=== PATIENT | male | born 1975 | race American Indian/Alaskan Native ===

== ENCOUNTER 2017-05-06 13:25 | Outpatient (CLI) | payer MEDICARE ==
[2017-05-06] MEDS ORDERED: XYLOCAINE TOPICAL 4% TP ONE (15:00)
== END 2017-05-06 13:26 | disposition home or self-care (01) ==
LOC: WOUND 13:25
PROVIDERS: ATTEND Surgery
DX: T81.89XA Other complications of procedures, not elsewhere classified, initial encounter (principal); J44.9 Chronic obstructive pulmonary disease, unspecified; I11.0 Hypertensive heart disease with heart failure; I50.9 Heart failure, unspecified; E66.01 Morbid (severe) obesity due to excess calories; Z87.891 Personal history of nicotine dependence; F41.9 Anxiety disorder, unspecified; Z68.44 Body mass index [BMI] 60.0-69.9, adult; Z86.718 Personal history of other venous thrombosis and embolism; Y83.8 Other surgical procedures as the cause of abnormal reaction of the patient, or of later complication, without mention of misadventure at the time of the procedure; Y92.89 Other specified places as the place of occurrence of the external cause
CPT/HCPCS: G0463-25

== ENCOUNTER 2017-05-20 13:29 | Outpatient (CLI) | payer MEDICARE ==
[2017-05-20] MEDS ORDERED: XYLOCAINE TOPICAL 4% TP ONE ×2 (14:18→15:33)
[2017-05-20] MEDS ORDERED: NACL 0.9% 500 ML IR ONE (14:18)
[2017-05-20] MEDS ORDERED: NACL 0.9% IR PRN (15:33)
== END 2017-05-20 13:30 | disposition home or self-care (01) ==
LOC: WOUND 13:29
PROVIDERS: ATTEND Surgery
DX: T81.89XD Other complications of procedures, not elsewhere classified, subsequent encounter (principal); J44.9 Chronic obstructive pulmonary disease, unspecified; I11.0 Hypertensive heart disease with heart failure; I50.9 Heart failure, unspecified; E66.01 Morbid (severe) obesity due to excess calories; F41.9 Anxiety disorder, unspecified; Z86.718 Personal history of other venous thrombosis and embolism; Z68.44 Body mass index [BMI] 60.0-69.9, adult; Y83.8 Other surgical procedures as the cause of abnormal reaction of the patient, or of later complication, without mention of misadventure at the time of the procedure
CPT/HCPCS: 97605

== ENCOUNTER 2017-05-27 10:04 | Outpatient (CLI) | payer MEDICARE ==
[2017-05-27] MEDS ORDERED: XYLOCAINE TOPICAL 4% TP ONE ×2 (10:33→11:00)
== END 2017-05-27 10:05 | disposition home or self-care (01) ==
LOC: WOUND 10:04
PROVIDERS: ATTEND Surgery
DX: T81.89XD Other complications of procedures, not elsewhere classified, subsequent encounter (principal); L97.122 Non-pressure chronic ulcer of left thigh with fat layer exposed; J44.9 Chronic obstructive pulmonary disease, unspecified; I11.0 Hypertensive heart disease with heart failure; I50.9 Heart failure, unspecified; E66.01 Morbid (severe) obesity due to excess calories; F41.9 Anxiety disorder, unspecified; Z86.718 Personal history of other venous thrombosis and embolism; Z87.891 Personal history of nicotine dependence; Z68.44 Body mass index [BMI] 60.0-69.9, adult; Y83.8 Other surgical procedures as the cause of abnormal reaction of the patient, or of later complication, without mention of misadventure at the time of the procedure
CPT/HCPCS: 97605

== ENCOUNTER 2017-06-04 13:42 | Outpatient (CLI) | payer MEDICARE ==
[2017-06-04] MEDS ORDERED: XYLOCAINE TOPICAL 4% TP ONE ×2 (14:23→14:32)
== END 2017-06-04 13:43 | disposition home or self-care (01) ==
LOC: WOUND 13:42
PROVIDERS: ATTEND Nurse Practitioner
DX: T81.89XD Other complications of procedures, not elsewhere classified, subsequent encounter (principal); E11.622 Type 2 diabetes mellitus with other skin ulcer; L97.122 Non-pressure chronic ulcer of left thigh with fat layer exposed; J44.9 Chronic obstructive pulmonary disease, unspecified; I11.0 Hypertensive heart disease with heart failure; I50.9 Heart failure, unspecified; F41.9 Anxiety disorder, unspecified; Z86.718 Personal history of other venous thrombosis and embolism; Z87.891 Personal history of nicotine dependence; Y83.8 Other surgical procedures as the cause of abnormal reaction of the patient, or of later complication, without mention of misadventure at the time of the procedure

== ENCOUNTER 2017-06-10 14:10 | Outpatient (CLI) | payer MEDICARE ==
[2017-06-10] MEDS ORDERED: SILVER NITRATE TP ONE ×2 (14:30→14:34)
== END 2017-06-10 14:11 | disposition home or self-care (01) ==
LOC: WOUND 14:10
PROVIDERS: ATTEND Surgery
DX: T81.89XD Other complications of procedures, not elsewhere classified, subsequent encounter (principal); I11.0 Hypertensive heart disease with heart failure; I50.9 Heart failure, unspecified; E66.01 Morbid (severe) obesity due to excess calories; F41.9 Anxiety disorder, unspecified; Z86.718 Personal history of other venous thrombosis and embolism; Z87.891 Personal history of nicotine dependence; Y83.8 Other surgical procedures as the cause of abnormal reaction of the patient, or of later complication, without mention of misadventure at the time of the procedure
CPT/HCPCS: 17250; G0463

== ENCOUNTER 2017-06-17 11:07 | Outpatient (CLI) | payer MEDICARE | END 2017-06-17 11:08 | disposition home or self-care (01) | LOC: WOUND 11:07 | PROVIDERS: ATTEND Surgery | DX: T81.89XD Other complications of procedures, not elsewhere classified, subsequent encounter (principal); I11.0 Hypertensive heart disease with heart failure; I50.9 Heart failure, unspecified; J44.9 Chronic obstructive pulmonary disease, unspecified; E66.9 Obesity, unspecified; F41.9 Anxiety disorder, unspecified; G47.33 Obstructive sleep apnea (adult) (pediatric); Z86.718 Personal history of other venous thrombosis and embolism; Z87.891 Personal history of nicotine dependence; Y83.8 Other surgical procedures as the cause of abnormal reaction of the patient, or of later complication, without mention of misadventure at the time of the procedure | CPT/HCPCS: 99213; G0463 ==

== ENCOUNTER 2018-01-19 12:59 | Emergency (ER) | payer MEDICARE ==
[2018-01-19] MEDS ORDERED: NACL 0.9% 1000 ML 1,000 ML IV ONE (13:27)
[2018-01-19 14:04] LABS: Basophils # (Auto) 0.1 K/mm3 (0.0-0.1); Basophils % (Auto) 0.8 % (0.0-1.8); Eosinophils # (Auto) 0.1 K/mm3 (0.0-0.4); Eosinophils % (Auto) 0.6 % (0.0-4.3); Hematocrit 48.5 % (35.5-45.6); Hemoglobin 16.3 gm/dl (11.8-15.2); Lymphocytes # (Auto) 2.7 K/mm3 (1.2-5.4); Lymphocytes % (Auto) 17.9 % (13.4-35.0); Mean Corpuscular HGB Conc 34 % (32-34); Mean Corpuscular Hemoglobin 29 pg (28-32); Mean Corpuscular Volume 87 fl (84-94); Monocytes # (Auto) 0.8 K/mm3 (0.0-0.8); Monocytes % (Auto) 5.4 % (0.0-7.3); Platelet Count 274 K/mm3 (140-440); Red Blood Count 5.56 M/mm3 (3.65-5.03); Red Cell Distribution Width 13.2 % (13.2-15.2)
[2018-01-19] MEDS ORDERED: SUBLIMAZE IV ONE (14:14)
[2018-01-19] MEDS ORDERED: ZOFRAN IV ONE (14:14)
--- NOTE | 2018-01-19 14:15 | Emergency Department Report ---
ED General Adult HPI - General Chief complaint: Abdominal Pain Stated complaint: CHEST PAIN/THROWING UP 4 DAYS Time Seen by Provider: 01/19/18 13:58 Source: patient, RN notes reviewed, old records reviewed Mode of arrival: Ambulatory Limitations: No Limitations - History of Present Illness Initial comments: Cardiology: [facility] Passenger Agent: Dr. Yepez Past medical history: Congestive heart failure, COPD, obesity, chronic hypoxic respiratory failure, home oxygen, CPAP with oxygen, obesity, hypertension, diabetes This is a 42-year-old gentleman who presents to the ER complaining of epigastric and bilateral upper quadrant pain that radiates down to the right mid flank. It is associated with nausea, and coughing/vomiting coffee-ground emesis. There is no testicular pain, there are no urinary symptoms. He reports intermittent spells of coughing up dark mucus, and posttussive emesis with coffee grounds. However, he denies bright red blood per rectum. His pain is crampy achy and sharp, increases with palpation and it decreases with rest. It does not change with a hot shower. He admits to cannabis consumption. He denies lower abdominal pain, testicular pain, leg pain, leg swelling. -: Gradual, days(s) Location: abdomen Quality: aching Consistency: intermittent Improves with: rest Worsens with: movement Associated Symptoms: cough, nausea/vomiting, shortness of breath (chronic). denies: confusion, chest pain, diaphoresis, fever/chills, headaches, loss of appetite, malaise, rash, seizure, syncope, weakness - Related Data Home Medications Medication Instructions Recorded Confirmed Last Taken ALPRAZolam [Xanax TAB] 2 mg PO TID PRN 04/23/17 04/23/17 04/23/17 Aspirin [Aspirin EC] 81 mg PO DAILY 04/23/17 04/23/17 04/23/17 Furosemide [Lasix TAB] 40 mg PO QDAY 04/23/17 04/23/17 04/23/17 Previous Rx's Medication Instructions Recorded Last Taken Type Carvedilol [Coreg] 25 mg PO BID #60 tablet 05/05/17 Unknown Rx Insulin Aspart [NovoLOG Flexpen] 40 units SQ AC 30 Days #1 05/05/17 04/23/17 Rx Ketoconazole 2% [Nizoral] 1 applic TP BID #1 tube 05/05/17 Unknown Rx Lisinopril [Zestril TAB] 40 mg PO QDAY #30 tablet 05/05/17 Unknown Rx Oxycodone HCl/Acetaminophen 1 each PO Q6HR PRN #14 tablet 05/05/17 Unknown Rx [Percocet 10/325 mg] Hydeqvzqokly-Qusf-Xucjtcls,Iso 4.5 gm IV Q8H 21 Days froz.piggy 05/05/17 Unknown Rx [Zosyn 4.5 gm/100 ml Galaxy Bag] Vancomycin/0.9 % Sod Chloride 2 gm IV Q12H 21 Days plast..bag 05/05/17 Unknown Rx [Vanco 2 Gram/250 ml-0.9% NaCl] Albuterol Sulfate [Proair 90 mcg IH Q4HR PRN #2 aer.pow.ba 01/19/18 Unknown Rx Respiclick] Famotidine [Pepcid] 20 mg PO BID #60 tablet 01/19/18 Unknown Rx Ondansetron [Zofran Odt] 4 mg PO Q8HR PRN #20 tab.rapdis 01/19/18 Unknown Rx Allergies Allergy/AdvReac Type Severity Reaction Status Date / Time cephalexin [From Keflex] Allergy Unknown Verified 01/19/18 14:44 Penicillins Allergy Unknown Verified 01/19/18 14:44 ED Review of Systems ROS: Stated complaint: CHEST PAIN/THROWING UP 4 DAYS Other details as noted in HPI Constitutional: denies: fever, malaise Eyes: denies: eye discharge Respiratory: cough, shortness of breath. denies: wheezing Cardiovascular: denies: chest pain Gastrointestinal: abdominal pain, nausea, vomiting. denies: hematemesis, melena , hematochezia Musculoskeletal: denies: as per HPI Skin: denies: lesions Neurological: denies: weakness Psychiatric: anxiety ED Past Medical Hx - Past Medical History Hx Hypertension: Yes Hx Congestive Heart Failure: Yes Hx Diabetes: Yes Hx Deep Vein Thrombosis: No Hx Psychiatric Treatment: Yes Hx COPD: Yes (Home O2) Additional medical history: ADD. anxiety. lung obstruction (right). obeisity - Surgical History Hx Pacemaker: No Hx Internal Defibrillator: No - Social History Smoking Status: Former Smoker Substance Use Type: Marijuana - Medications Home Medications: Home Medications Medication Instructions Recorded Confirmed Last Taken Type ALPRAZolam [Xanax TAB] 2 mg PO TID PRN 04/23/17 04/23/17 04/23/17 History Aspirin [Aspirin EC] 81 mg PO DAILY 04/23/17 04/23/17 04/23/17 History Furosemide [Lasix TAB] 40 mg PO QDAY 04/23/17 04/23/17 04/23/17 History Carvedilol [Coreg] 25 mg PO BID #60 tablet 05/05/17 Unknown Rx Insulin Aspart [NovoLOG Flexpen] 40 units SQ AC 30 Days #1 05/05/17 04/23/17 Rx Ketoconazole 2% [Nizoral] 1 applic TP BID #1 tube 05/05/17 Unknown Rx Lisinopril [Zestril TAB] 40 mg PO QDAY #30 tablet 05/05/17 Unknown Rx Oxycodone HCl/Acetaminophen 1 each PO Q6HR PRN #14 tablet 05/05/17 Unknown Rx [Percocet 10/325 mg] Jubnyhoioykq-Jtdc-Fgsdgrqn,Iso 4.5 gm IV Q8H 21 Days froz.piggy 05/05/17 Unknown Rx [Zosyn 4.5 gm/100 ml Galaxy Bag] Vancomycin/0.9 % Sod Chloride 2 gm IV Q12H 21 Days plast..bag 05/05/17 Unknown Rx [Vanco 2 Gram/250 ml-0.9% NaCl] Albuterol Sulfate [Proair 90 mcg IH Q4HR PRN #2 aer.pow.ba 01/19/18 Unknown Rx Respiclick] Famotidine [Pepcid] 20 mg PO BID #60 tablet 01/19/18 Unknown Rx Ondansetron [Zofran Odt] 4 mg PO Q8HR PRN #20 tab.rapdis 01/19/18 Unknown Rx ED Physical Exam - General Limitations: No Limitations General appearance: alert, in no apparent distress, obese - Head Head exam: Present: atraumatic, normocephalic - Eye Eye exam: Present: normal appearance. Absent: nystagmus - ENT ENT exam: Present: normal orophraynx, mucous membranes moist - Neck Neck exam: Present: normal inspection, full ROM - Respiratory Respiratory exam: Present: rhonchi, decreased breath sounds. Absent: respiratory distress - Cardiovascular Cardiovascular Exam: Present: regular rate, normal rhythm, normal heart sounds. Absent: bradycardia, tachycardia, irregular rhythm, systolic murmur, diastolic murmur, rubs, gallop - GI/Abdominal GI/Abdominal exam: Present: soft, tenderness (epigastric tenderness, right upper quadrant tenderness, right flank tenderness). Absent: distended, guarding , rebound, rigid, pulsatile mass - Rectal Rectal exam: Present: normal inspection, heme (-) stool, other (escorted by nurse Douglas Keyes). Absent: heme (+) stool, black stool, bloody stool, fecal impaction, hemorrhoids, mass, tenderness - Extremities Exam Extremities exam: Present: normal inspection, full ROM, other (2+ pulses noted in the bilateral upper, lower extremities. Compartments soft. No long bony tenderness. The pelvis is stable.). Absent: tenderness, joint swelling, calf tenderness - Back Exam Back exam: Present: normal inspection, full ROM. Absent: tenderness, CVA tenderness (R), paraspinal tenderness, vertebral tenderness - Neurological Exam Neurological exam: Present: alert, oriented X3, CN II-XII intact, other ( Extraocular movements intact. Tongue midline. No facial droop. Facial sensation intact to light touch in the V1, V2, V3 distribution bilaterally. 5 and 5 strength in 4 extremities.. Sensation is intact to light touch in 4 extremities.). Absent: motor sensory deficit - Psychiatric Psychiatric exam: Present: normal affect, normal mood - Skin Skin exam: Present: warm, dry, intact, normal color. Absent: rash ED Course Vital Signs 01/19/18 01/19/18 01/19/18 13:19 14:50 15:14 Temperature 98.2 F 98.8 F Pulse Rate 95 H 83 Respiratory 18 20 20 Rate Blood Pressure 167/105 Blood Pressure 136/76 [Right] O2 Sat by Pulse 97 95 95 Oximetry - Reevaluation(s) Reevaluation #1: 01/19/18 15:11 Differential diagnosis, including not limited to: GERD, gastritis, hiatal hernia , biliary colic, pancreatitis, upper GI bleed, gastritis, bronchitis, bronchiectasis, pneumonia Assessment and plan: 42-year-old male with complaint of abdominal pain, coughing up dark mucus, posttussive emesis, reported coffee grounds, with mild abdominal tenderness. He is guaiac negative. Hemoglobin and hematocrit are appropriate. He is playing on a cellular phone and in no distress and speaking in full sentence has chronic medical issues which do not appear to be acutely decompensated at this time. CT scan of the abdomen and pelvis and ultrasound pending at this time. Reevaluation #2: 01/19/18 18:16 Patient's ultrasound is negative for gallbladder disease. Fatty liver is noted on both ultrasound and CT scan. The patient is observed in the ER for hours without clinical decompensation. A CT scan of his abdomen and pelvis does not suggest pneumonia in the visualized portions of the lung bases. The x-ray interpretation suggests a possible right-sided suprahilar/hilar infiltrate, however the rate is ambiguous. Clinically do not suspect pneumonia at this point in time. Clinically do not suspect pulmonary embolus at this time. Patient is tolerating liquid feeds. He will be discharged with appropriate GI pain medicine, nausea medicine, breathing treatments, and he can follow-up with outpatient gastroenterology as well as his private acid condenser. ED Medical Decision Making - Lab Data Result diagrams: 01/19/18 13:40 01/19/18 13:40 Vital Signs 01/19/18 13:19 Temperature 98.2 F Pulse Rate 95 H Respiratory 18 Rate Blood Pressure 167/105 O2 Sat by Pulse 97 Oximetry Lab Results 01/19/18 01/19/18 01/19/18 Range/Units 13:40 13:40 13:55 WBC 15.3 H (4.5-11.0) K/mm3 RBC 5.56 H (3.65-5.03) M/mm3 Hgb 16.3 H (11.8-15.2) gm/dl Hct 48.5 H (35.5-45.6) % MCV 87 (84-94) fl MCH 29 (28-32) pg MCHC 34 (32-34) % RDW 13.2 (13.2-15.2) % Plt Count 274 (140-440) K/mm3 Lymph % (Auto) 17.9 (13.4-35.0) % Wells % (Auto) 5.4 (0.0-7.3) % Eos % (Auto) 0.6 (0.0-4.3) % Baso % (Auto) 0.8 (0.0-1.8) % Lymph # 2.7 (1.2-5.4) K/mm3 Wells # 0.8 (0.0-0.8) K/mm3 Eos # 0.1 (0.0-0.4) K/mm3 Baso # 0.1 (0.0-0.1) K/mm3 Seg Neutrophils % 75.3 H (40.0-70.0) % Seg Neutrophils # 11.5 H (1.8-7.7) K/mm3 Sodium 137 (137-145) mmol/L Potassium 3.6 (3.6-5.0) mmol/L Chloride 95.8 L (98-107) mmol/L Carbon Dioxide 25 (22-30) mmol/L Anion Gap 20 mmol/L BUN 12 (9-20) mg/dL Creatinine 0.7 L (0.8-1.5) mg/dL Estimated GFR > 60 ml/min BUN/Creatinine Ratio 17 % Glucose 274 H (75-100) mg/dL Calcium 9.2 (8.4-10.2) mg/dL Total Bilirubin 0.80 (0.1-1.2) mg/dL AST 19 (5-40) units/L ALT 26 (7-56) units/L Alkaline Phosphatase 106 (35-129) units/L Total Protein 7.5 (6.3-8.2) g/dL Albumin 3.7 L (3.9-5) g/dL Albumin/Globulin Ratio 1.0 % Lipase 76 H (13-60) units/L Urine Color [place] (Yellow) Urine Turbidity Clear (Clear) Urine pH 5.0 (5.0-7.0) Ur Specific [place] 1.040 H (1.003-1.030) Urine Protein 100 mg/dl (Negative) mg/dL Urine Glucose (UA) >=500 (Negative) mg/dL Urine Ketones 20 (Negative) mg/dL Urine Blood Neg (Negative) Urine Nitrite Neg (Negative) Urine Bilirubin Mod (Negative) Urine Ictotest Negative (Negative) Urine Urobilinogen 4.0 (<2.0) mg/dL Ur Leukocyte Esterase Neg (Negative) Urine WBC (Auto) 9.0 H (0.0-6.0) /HPF Urine RBC (Auto) 1.0 (0.0-6.0) /HPF U Epithel Cells (Auto) 7.0 (0-13.0) /HPF Urine Mucus 3+ /HPF - EKG Data -: EKG Interpreted by Me EKG shows normal: sinus rhythm - EKG Data 01/19/18 15:10 Normal sinus, 86 bpm, borderline left axis deviation, QTC prolonged, abnormal EKG, not a STEMI, appears grossly unchanged when compared to prior from April 2017, the exception of the borderline left axis deviation, which may be related to lead placement, motion artifact - Radiology Data Radiology results: image reviewed interpreted by me: X-ray of the chest, interpreted by me, no acute disease Critical care attestation.: If time is entered above; I have spent that time in minutes in the direct care of this critically ill patient, excluding procedure time. ED Disposition Clinical Impression: Bronchitis, Epigastric abdominal pain, History of nausea and vomiting Disposition: - TO HOME OR SELFCARE Is pt being admited?: No Does the pt Need Aspirin: No Condition: Stable Instructions: Chronic Bronchitis (ED) Additional Instructions: Avoid consumption of Motrin, ibuprofen, Naprosyn, Aleve, heavy, spicy foods, alcohol. Both ultrasound and CT scan of the abdomen and pelvis suggested fatty infiltration of the liver, which can come from diet and alcohol consumption. Take the medications as needed/directed, and follow up with a forestry consultant specialist within the next week. [facility] has a patient Hotline that can be used to obtain a rapid appointment. Continue your outpatient pulmonary medicines and follow-up with your acid condenser within the next week as well. Return to the ER right away with new pain, worsening pain, migration of pain, projectile vomiting, change in mental status , confusion, inability to tolerate liquid feeds. Then start gently as tolerated , and start with gentle fluids, and then go from there. Referrals: CATIE GRAHAM MD [Primary Care Provider] - 3-5 Days CASTRO YEPEZ MD [Staff Physician] - 3-5 Days [facility] [Provider Group] - 3-5 Days
[2018-01-19 14:17] LABS: Alanine Aminotransferase 26 units/L (7-56); Albumin 3.7 g/dL (3.9-5); BUN/Creatinine Ratio 17; Blood Urea Nitrogen 12 mg/dL (9-20); Calcium 9.2 mg/dL (8.4-10.2); Hemolysis Index 16; Lipase 76 units/L (13-60)
[2018-01-19 14:26] LABS: Bilirubin,Urine MOD (Negative); Blood,Urine NEG (Negative); Color,Urine Amber (Yellow); Mucus,Urine 3+ /HPF
[2018-01-19 14:30] LABS: Ictotest,Urine Negative (Negative)
[2018-01-19 15:13] VITALS: BP 136/76
[2018-01-19 15:21] LABS: INR 0.86 (0.87-1.13)
[2018-01-19 15:22] LABS: Partial Thromboplastin Time 24.4 Sec. (24.2-36.6)
--- NOTE | 2018-01-19 15:36 | Cat Scan Report ---
CT ABDOMEN PELVIS WITH CONTRAST: HISTORY: abdominal pain. COMPARISON: 04/23/17. TECHNIQUE: Helical CT in 1.25mm intervals following IV contrast. Sagittal and coronal reconstructions. FINDINGS: Lung bases: Normal. Liver: Mild diffuse fatty change is present throughout the liver. A small segment of the lateral right hepatic lobe is not included secondary to body habitus. There is no obvious liver mass. Biliary system: Normal. Pancreas: Normal. Spleen: Normal. Kidneys/ureters/bladder: Normal. Adrenal glands: Normal. Aorta: Normal. Intestines: Normal. Appendix: Normal. Pelvic viscera: Normal. Ascites: None. Adenopathy: None. Musculoskeletal: Intact. IMPRESSION: No acute process is identified. Mild fatty change throughout the liver.
--- NOTE | 2018-01-19 17:17 | XRay Report ---
FINAL REPORT EXAM: XR CHEST ROUTINE 2V HISTORY: cough dyspnea TECHNIQUE: Two views of the chest Comparison: Lung bases CT abdomen and pelvis 04/23/2017 FINDINGS: Heart size is normal. Slight distortion of the hilar contours. Ill-defined fullness of the right hilum and suprahilar region. A patchy right suprahilar infiltrate may be present. No definite abnormality on the lateral projection. No effusion. No infiltrates otherwise. IMPRESSION: Larger patient body habitus. Possible patchy right suprahilar infiltrate. Consider CT chest with IV contrast. If any concern for pulmonary embolus, recommend CTA PE protocol.
--- NOTE | 2018-01-19 18:03 | Ultrasound Report ---
FINAL REPORT EXAM: US ABDOMEN LIMITED HISTORY: abd pain TECHNIQUE: Directed sonography of the right upper quadrant. PRIORS: None. FINDINGS: Patient body habitus limits examination. Gallbladder is of normal size and echogenicity without evidence of calculi. Wall thickness within normal limits. Intra-and extrahepatic bile ducts are of normal caliber. Liver is enlarged and has diffusely increased echogenicity without focal abnormalities. Right kidney measures 11.1 cm in longest dimension and is grossly unremarkable. Pancreas poorly visualized. IMPRESSION: 1. Findings compatible with hepatomegaly and fatty infiltration in the liver. 2. Otherwise, unremarkable.
== END 2018-01-19 18:35 | disposition home or self-care (01) ==
LOC: ED 12:59
DX: J40 Bronchitis, not specified as acute or chronic (principal); I11.0 Hypertensive heart disease with heart failure; F41.9 Anxiety disorder, unspecified; E11.9 Type 2 diabetes mellitus without complications; Z79.82 Long term (current) use of aspirin; Z79.4 Long term (current) use of insulin; Z88.0 Allergy status to penicillin; Z88.5 Allergy status to narcotic agent; Z87.891 Personal history of nicotine dependence
CPT/HCPCS: 36415; 71046; 74177; 76705; 80053; 81001; 82140; 82271; 83690; 83880; 85025; 85610; 85730; 93005; 93010; 96374; 96375; 99284; J2405; J3010; Q9967

== ENCOUNTER 2018-01-26 00:43 | Emergency (ER) | payer MEDICARE ==
[2018-01-26] MEDS ORDERED: NACL 0.9% 1000 ML 1,000 ML IV ONE (01:52)
[2018-01-26 02:16] LABS: Basophils # (Auto) 0.1 K/mm3 (0.0-0.1); Basophils % (Auto) 0.8 % (0.0-1.8); Eosinophils # (Auto) 0.2 K/mm3 (0.0-0.4); Eosinophils % (Auto) 1.9 % (0.0-4.3); Hematocrit 48.8 % (35.5-45.6); Hemoglobin 16.2 gm/dl (11.8-15.2); Lymphocytes # (Auto) 3.4 K/mm3 (1.2-5.4); Lymphocytes % (Auto) 25.7 % (13.4-35.0); Mean Corpuscular HGB Conc 33 % (32-34); Mean Corpuscular Hemoglobin 29 pg (28-32); Mean Corpuscular Volume 88 fl (84-94); Monocytes # (Auto) 0.8 K/mm3 (0.0-0.8); Monocytes % (Auto) 5.8 % (0.0-7.3); Platelet Count 297 K/mm3 (140-440); Red Blood Count 5.53 M/mm3 (3.65-5.03); Red Cell Distribution Width 13.2 % (13.2-15.2)
[2018-01-26 02:32] LABS: Alanine Aminotransferase 21 units/L (7-56); BUN/Creatinine Ratio 14; Blood Urea Nitrogen 13 mg/dL (9-20); Calcium 9.5 mg/dL (8.4-10.2); Hemolysis Index 5; Lipase 81 units/L (13-60)
[2018-01-26] MEDS ORDERED: ZOFRAN ODT PO STA (09:13)
[2018-01-26] MEDS ORDERED: PEPCID PO ONE (09:14)
[2018-01-26] MEDS ORDERED: CARAFATE PO ONE (09:14)
[2018-01-26] MEDS ORDERED: ALUM-MAG HYDROX-SIMETH 200-200-20MG/5ML PO ONE (09:14)
--- NOTE | 2018-01-26 09:35 | XRay Report ---
ROUTINE CHEST, TWO VIEWS: HISTORY: Epigastric pain radiating to chest. The trachea, heart, mediastinal contour, lung mckinney and bony thorax are unremarkable. IMPRESSION: Unremarkable chest x-ray. No change since 01/19/18.
--- NOTE | 2018-01-26 10:38 | Emergency Department Report ---
ED General Adult HPI - General Chief complaint: Abdominal Pain Stated complaint: N/D; ABD BLOATING Time Seen by Provider: 01/26/18 09:04 Source: patient, RN notes reviewed, old records reviewed Mode of arrival: Ambulatory Limitations: No Limitations - History of Present Illness Initial comments: This is a 42-year-old gentleman who is known to this provider previously. Please see my note from 01/19/2018. Patient presents to the ER with worsening symptoms. He complains of worsened epigastric pain with swallowing. He also has right upper quadrant discomfort. He has chronic shortness of breath. He has no lower abdominal pain. Patient had extensive workup in this emergency room last week performed by myself which was negative for significant disease. He has follow-up with gastroenterology in 3 days. In the emergency room, the patient was treated with nonnarcotic pain medication, nausea medication, felt improved, was able to tolerate liquid feeds. -: Gradual Location: chest, back, abdomen Consistency: intermittent Improves with: rest Worsens with: eating Associated Symptoms: chest pain, cough, headaches, nausea/vomiting, shortness of breath. denies: confusion, diaphoresis, loss of appetite, malaise, rash, seizure, syncope, weakness - Related Data Home Medications Medication Instructions Recorded Confirmed Last Taken ALPRAZolam [Xanax TAB] 2 mg PO TID PRN 04/23/17 04/23/17 04/23/17 Aspirin [Aspirin EC] 81 mg PO DAILY 04/23/17 04/23/17 04/23/17 Furosemide [Lasix TAB] 40 mg PO QDAY 04/23/17 04/23/17 04/23/17 Previous Rx's Medication Instructions Recorded Last Taken Type Carvedilol [Coreg] 25 mg PO BID #60 tablet 05/05/17 Unknown Rx Insulin Aspart [NovoLOG Flexpen] 40 units SQ AC 30 Days #1 05/05/17 04/23/17 Rx Ketoconazole 2% [Nizoral] 1 applic TP BID #1 tube 05/05/17 Unknown Rx Lisinopril [Zestril TAB] 40 mg PO QDAY #30 tablet 05/05/17 Unknown Rx Oxycodone HCl/Acetaminophen 1 each PO Q6HR PRN #14 tablet 05/05/17 Unknown Rx [Percocet 10/325 mg] Rspdclxnqsaj-Fcij-Tinnrjbx,Iso 4.5 gm IV Q8H 21 Days froz.piggy 05/05/17 Unknown Rx [Zosyn 4.5 gm/100 ml Galaxy Bag] Vancomycin/0.9 % Sod Chloride 2 gm IV Q12H 21 Days plast..bag 05/05/17 Unknown Rx [Vanco 2 Gram/250 ml-0.9% NaCl] Albuterol Sulfate [Proair 90 mcg IH Q4HR PRN #2 aer.pow.ba 01/19/18 Unknown Rx Respiclick] Famotidine [Pepcid] 20 mg PO BID #60 tablet 01/19/18 Unknown Rx Ondansetron [Zofran Odt] 4 mg PO Q8HR PRN #20 tab.rapdis 01/19/18 Unknown Rx Acetaminophen [Acetaminophen ORAL 650 mg PO Q4HR PRN #1 bottle 01/26/18 Unknown Rx LIQ] Ondansetron [Zofran Odt] 4 mg PO Q8HR PRN #20 tab.rapdis 01/26/18 Unknown Rx Promethazine [Phenergan SUPPOS] 50 mg MS Q6H PRN #20 supp.rect 01/26/18 Unknown Rx Allergies Allergy/AdvReac Type Severity Reaction Status Date / Time cephalexin [From Keflex] Allergy Unknown Verified 01/19/18 14:44 Penicillins Allergy Unknown Verified 01/19/18 14:44 ED Review of Systems ROS: Stated complaint: N/D; ABD BLOATING Other details as noted in HPI Constitutional: denies: fever Eyes: denies: vision change ENT: denies: epistaxis Respiratory: shortness of breath Cardiovascular: chest pain Gastrointestinal: abdominal pain Genitourinary: denies: dysuria Musculoskeletal: back pain Neurological: denies: headache ED Past Medical Hx - Past Medical History Hx Hypertension: Yes Hx Congestive Heart Failure: Yes Hx Diabetes: Yes Hx Deep Vein Thrombosis: No Hx Psychiatric Treatment: Yes Hx COPD: Yes (Home O2) Additional medical history: ADD, MRSA. anxiety. lung obstruction (right). Morbid obesity - Surgical History Past Surgical History?: No Hx Pacemaker: No Hx Internal Defibrillator: No - Social History Smoking Status: Former Smoker Substance Use Type: None - Medications Home Medications: Home Medications Medication Instructions Recorded Confirmed Last Taken Type ALPRAZolam [Xanax TAB] 2 mg PO TID PRN 04/23/17 04/23/17 04/23/17 History Aspirin [Aspirin EC] 81 mg PO DAILY 04/23/17 04/23/17 04/23/17 History Furosemide [Lasix TAB] 40 mg PO QDAY 04/23/17 04/23/17 04/23/17 History Carvedilol [Coreg] 25 mg PO BID #60 tablet 05/05/17 Unknown Rx Insulin Aspart [NovoLOG Flexpen] 40 units SQ AC 30 Days #1 05/05/17 04/23/17 Rx Ketoconazole 2% [Nizoral] 1 applic TP BID #1 tube 05/05/17 Unknown Rx Lisinopril [Zestril TAB] 40 mg PO QDAY #30 tablet 05/05/17 Unknown Rx Oxycodone HCl/Acetaminophen 1 each PO Q6HR PRN #14 tablet 05/05/17 Unknown Rx [Percocet 10/325 mg] Psmwipovnsuz-Holg-Ccuntvwj,Iso 4.5 gm IV Q8H 21 Days froz.piggy 05/05/17 Unknown Rx [Zosyn 4.5 gm/100 ml Galaxy Bag] Vancomycin/0.9 % Sod Chloride 2 gm IV Q12H 21 Days plast..bag 05/05/17 Unknown Rx [Vanco 2 Gram/250 ml-0.9% NaCl] Albuterol Sulfate [Proair 90 mcg IH Q4HR PRN #2 aer.pow.ba 01/19/18 Unknown Rx Respiclick] Famotidine [Pepcid] 20 mg PO BID #60 tablet 01/19/18 Unknown Rx Ondansetron [Zofran Odt] 4 mg PO Q8HR PRN #20 tab.rapdis 01/19/18 Unknown Rx Acetaminophen [Acetaminophen ORAL 650 mg PO Q4HR PRN #1 bottle 01/26/18 Unknown Rx LIQ] Ondansetron [Zofran Odt] 4 mg PO Q8HR PRN #20 tab.rapdis 01/26/18 Unknown Rx Promethazine [Phenergan SUPPOS] 50 mg MS Q6H PRN #20 supp.rect 01/26/18 Unknown Rx ED Physical Exam - General Limitations: No Limitations General appearance: alert, in no apparent distress - Head Head exam: Present: atraumatic, normocephalic - Eye Eye exam: Present: normal appearance, EOMI. Absent: nystagmus - ENT ENT exam: Present: normal exam, normal orophraynx, mucous membranes moist, normal external ear exam - Neck Neck exam: Present: normal inspection, full ROM - Respiratory Respiratory exam: Present: normal lung sounds bilaterally. Absent: respiratory distress - Cardiovascular Cardiovascular Exam: Present: regular rate, normal rhythm. Absent: systolic murmur, diastolic murmur, rubs, gallop - GI/Abdominal GI/Abdominal exam: Present: soft, tenderness, normal bowel sounds, other (there is epigastric tenderness. There is a negative Morgan sign.). Absent: distended , guarding, rebound, rigid, pulsatile mass - Rectal Rectal exam: Present: deferred - Extremities Exam Extremities exam: Present: normal inspection, full ROM, pedal edema (1+ edema in the lower extremities, appears chronic), other (2+ pulses noted in the bilateral upper, lower extremities. Compartments soft. No long bony tenderness. The pelvis is stable.). Absent: tenderness, calf tenderness - Back Exam Back exam: Present: normal inspection, full ROM. Absent: tenderness, CVA tenderness (R), paraspinal tenderness, vertebral tenderness - Neurological Exam Neurological exam: Present: alert, oriented X3, CN II-XII intact, normal gait, other (Extraocular movements intact. Tongue midline. No facial droop. Facial sensation intact to light touch in the V1, V2, V3 distribution bilaterally. 5 and 5 strength in 4 extremities.. Sensation is intact to light touch in 4 extremities.). Absent: motor sensory deficit - Psychiatric Psychiatric exam: Present: normal affect, normal mood - Skin Skin exam: Present: warm, dry, intact, normal color. Absent: rash ED Course Vital Signs 01/26/18 01/26/18 01/26/18 01:42 09:00 09:32 Temperature 98.4 F Pulse Rate 97 H 72 Respiratory 18 10 L 18 Rate Blood Pressure 160/85 144/85 O2 Sat by Pulse 96 95 96 Oximetry ED Medical Decision Making - Lab Data Result diagrams: 01/26/18 01:59 01/26/18 01:59 Vital Signs 01/26/18 01/26/18 01/26/18 01:42 09:00 09:32 Temperature 98.4 F Pulse Rate 97 H 72 Respiratory 18 10 L 18 Rate Blood Pressure 160/85 144/85 O2 Sat by Pulse 96 95 96 Oximetry Lab Results 01/26/18 01/26/18 01/26/18 Range/Units 01:59 01:59 01:59 WBC 13.2 H (4.5-11.0) K/mm3 RBC 5.53 H (3.65-5.03) M/mm3 Hgb 16.2 H (11.8-15.2) gm/dl Hct 48.8 H (35.5-45.6) % MCV 88 (84-94) fl MCH 29 (28-32) pg MCHC 33 (32-34) % RDW 13.2 (13.2-15.2) % Plt Count 297 (140-440) K/mm3 Lymph % (Auto) 25.7 (13.4-35.0) % Glenn % (Auto) 5.8 (0.0-7.3) % Eos % (Auto) 1.9 (0.0-4.3) % Baso % (Auto) 0.8 (0.0-1.8) % Lymph # 3.4 (1.2-5.4) K/mm3 Glenn # 0.8 (0.0-0.8) K/mm3 Eos # 0.2 (0.0-0.4) K/mm3 Baso # 0.1 (0.0-0.1) K/mm3 Seg Neutrophils % 65.8 (40.0-70.0) % Seg Neutrophils # 8.7 H (1.8-7.7) K/mm3 Sodium 139 (137-145) mmol/L Potassium 3.7 (3.6-5.0) mmol/L Chloride 95.8 L (98-107) mmol/L Carbon Dioxide 29 (22-30) mmol/L Anion Gap 18 mmol/L BUN 13 (9-20) mg/dL Creatinine 0.9 (0.8-1.5) mg/dL Estimated GFR > 60 ml/min BUN/Creatinine Ratio 14 % Glucose 275 H (75-100) mg/dL Calcium 9.5 (8.4-10.2) mg/dL Total Bilirubin 0.50 (0.1-1.2) mg/dL AST 12 (5-40) units/L ALT 21 (7-56) units/L Alkaline Phosphatase 97 (35-129) units/L Troponin T < 0.010 (0.00-0.029) ng/mL Total Protein 6.9 (6.3-8.2) g/dL Albumin 4.0 (3.9-5) g/dL Albumin/Globulin Ratio 1.4 % Lipase 81 H (13-60) units/L - EKG Data -: EKG Interpreted by Me Rate: normal - EKG Data When compared to previous EKG there are: no significant change 01/26/18 10:35 Sinus, 81 bpm, left axis deviation, low voltage, motion artifact, QTC prolonged , nondistended, unchanged from prior EKG from 01/19/2018 - Radiology Data Radiology results: report reviewed, image reviewed x-ray of the chest is negative for acute disease - Medical Decision Making Differential diagnosis, including but not limited to: GERD, gastritis, hiatal hernia, esophageal dysmotility, esophageal sphincter Assessment and plan: 42-year-old male who presents with subacute and ongoing epigastric and right upper quadrant pain, some substernal discomfort, worsened with eating, patient was seen by me about a week ago, had an extensive workup which was negative for significant disease. His presentation today appears to be unchanged from prior. I think acute coronary syndrome is unlikely, based on the history, duration of symptoms, unchanged EKG, negative troponin, patient's low risk I heart score. Given that symptoms have been going on for over 8 hours , as per the [employer] clinical policy, myocardial infarction ruled out with one set of troponins. He has follow-up with gastroenterology in 3 days, he was able to tolerate liquid feeds. He was previously discharged with Pepcid and Zofran, and I will add on as needed rectal Phenergan suppositories. Critical care attestation.: If time is entered above; I have spent that time in minutes in the direct care of this critically ill patient, excluding procedure time. ED Disposition Clinical Impression: Epigastric abdominal pain Disposition: - TO HOME OR SELFCARE Is pt being admited?: No Does the pt Need Aspirin: No Condition: Good Instructions: Gastritis (ED) Additional Instructions: Avoid consumption of Motrin, Naprosyn, Aleve, ibuprofen. Continue to pursue diet and lifestyle modifications to facilitate/enhance weight loss. Take the medications as needed/directed. Advance diet as tolerated, and drink liquids as tolerated. Follow up with the gastroenterology specialist on Thursday. Return to the ER right away with new pain, worsening pain, migration of pain, projectile vomiting, confusion, inability to tolerate liquid feeds. Referrals: PRIMARY CARE, [Primary Care Provider] - 3-5 Days [facility] [Provider Group] - 3-5 Days
[2018-01-26] MEDS ORDERED: TYLENOL PO ONE (10:43)
[2018-01-26 11:04] VITALS: BP 148/87
== END 2018-01-26 11:28 | disposition home or self-care (01) ==
LOC: ED 00:43
DX: R10.13 Epigastric pain (principal); I10 Essential (primary) hypertension; I50.9 Heart failure, unspecified; E11.9 Type 2 diabetes mellitus without complications; J44.9 Chronic obstructive pulmonary disease, unspecified; F41.9 Anxiety disorder, unspecified; Z87.891 Personal history of nicotine dependence; Z79.82 Long term (current) use of aspirin; Z79.4 Long term (current) use of insulin; Z88.0 Allergy status to penicillin; Z88.1 Allergy status to other antibiotic agents
CPT/HCPCS: 36415; 71046; 80053; 83690; 84484; 85025; 93005; 93010; 99284; Q0162

== ENCOUNTER 2019-02-16 20:13 | Inpatient (IN) | payer MEDICARE ==
--- NOTE | 2019-02-16 20:51 | Emergency Department Report ---
Blank Doc - Documentation Documentation: 43-year-old male that presents with chest pain, SOB, and boils to groin and ri ght breast tenderness and swelling. This initial assessment/diagnostic orders/clinical plan/treatment(s) is/are subject to change based on patient's health status, clinical progression and re-assessment by fellow clinical providers in the ED. Further treatment and workup at subsequent clinical providers discretion. Patient/guardians urged not to elope from the ED as their condition may be serious if not clinically assessed and managed. Initial orders include: 1- Patient sent to MAIN for further evaluation and treatment 2- labs 3- EKG 4- CXR
[2019-02-16 21:14] LABS: Hematocrit 42.7 % (35.5-45.6); Hemoglobin 14.1 gm/dl (11.8-15.2); Mean Corpuscular HGB Conc 33 % (32-34); Mean Corpuscular Volume 90 fl (84-94); Platelet Count 256 K/mm3 (140-440); Red Blood Count 4.77 M/mm3 (3.65-5.03); Red Cell Distribution Width 13.6 % (13.2-15.2)
[2019-02-16] MEDS ORDERED: ONDANSETRON 4 MG ODT TAB PO ONE (21:32)
[2019-02-16 21:37] LABS: INR 1.09 (0.87-1.13); Partial Thromboplastin Time 26.6 Sec. (24.2-36.6)
[2019-02-16] MEDS ORDERED: ONDANSETRON 4 MG/2 ML INJ IV ONE (21:38)
[2019-02-16] MEDS ORDERED: SODIUM CHLORIDE 0.9% 1000 ML 1,000 ML IV ONE ×2 (21:38→22:53)
[2019-02-16] MEDS ORDERED: SODIUM CHLORIDE 0.9% 1000 ML 1,000 ML ONE (21:41)
--- NOTE | 2019-02-16 21:46 | XRay Report ---
CHEST 2 VIEWS INDICATION: Chest Pain. COMPARISON: 01/26/2018 FINDINGS: Support devices: None. Heart: Within normal limits. Lungs: Bronchovascular markings are prominent. No acute air space or interstitial disease. Pleura: No significant pleural effusion. No pneumothorax. Additional findings: None. IMPRESSION: 1. No acute findings. Signer Name: Librado Alatorre MD Signed: 02/16/2019 9:41 PM Workstation Name: [id number]
[2019-02-16 21:53] LABS: BUN/Creatinine Ratio 13; Blood Urea Nitrogen 8 mg/dL (9-20); Calcium 8.8 mg/dL (8.4-10.2); Hemolysis Index 5
[2019-02-17] MEDS ORDERED: PIPERACIL/TAZOBACTA 4.5/NS 100 4.5 GM/100 ML VIAL IV ONE (00:10)
--- NOTE | 2019-02-17 00:19 | Emergency Department Report ---
- General Chief complaint: Chest Pain Stated complaint: CHEST PAIN, ODALYS, SOB, LUMP BETWEEN LEG AND CHEST Time Seen by Provider: 02/16/19 20:50 Source: family Mode of arrival: Ambulatory Limitations: No Limitations - History of Present Illness Initial comments: Chief complaint: "I think I have MRSA again." HPI: Mr. Maier is a 49-year-old male with history of diabetes mellitus, hypertension, CHF, anxiety disorder sleep apnea and severe obesity who presents with tenderness swelling in the left groin. This Infection Has Been Present for Several Days. He Had Subjective Fever and Generalized Malaise. He Also Is [id number] for Right Breast Mass under His Nipple. Domestic Partner at the Bedside Has Arranged for Oncologist Outpatient Evaluation. She Is Concerned for Cancerous Tumor. According to Electronic Medical Record, at This Hospital, At 2017, Mr. Maier Was Treated for Groin Abscess Cellulitis and Severe Sepsis Requiring Surgical Debridement. PCP Dr. Oj Price Charge Account Identification Clerk Dr. Lucho BATISTA complaint: rash -: Gradual, days(s) (3) Location: genitals Severity: severe Severity scale (0 -10): 8 Quality: aching, other (very tender to touch) Consistency: constant Improves with: none Worsens with: palpation, movement Associated symptoms: fever, chills, malaise - Related Data Home Medications Medication Instructions Recorded Confirmed Last Taken ALPRAZolam [Xanax TAB] 2 mg PO TID PRN 04/23/17 04/23/17 04/23/17 Aspirin [Aspirin EC] 81 mg PO DAILY 04/23/17 04/23/17 04/23/17 Furosemide [Lasix TAB] 40 mg PO QDAY 04/23/17 04/23/17 04/23/17 Previous Rx's Medication Instructions Recorded Last Taken Type Carvedilol [Coreg] 25 mg PO BID #60 tablet 05/05/17 Unknown Rx Insulin Aspart [NovoLOG Flexpen] 40 units SQ AC 30 Days #1 05/05/17 04/23/17 Rx Ketoconazole 2% [Nizoral] 1 applic TP BID #1 tube 05/05/17 Unknown Rx Lisinopril [Zestril TAB] 40 mg PO QDAY #30 tablet 05/05/17 Unknown Rx Oxycodone HCl/Acetaminophen 1 each PO Q6HR PRN #14 tablet 05/05/17 Unknown Rx [Percocet 10/325 mg] Fcunkiceufwk-Cvbs-Wyrtsnfm,Iso 4.5 gm IV Q8H 21 Days froz.piggy 05/05/17 Unknown Rx [Zosyn 4.5 gm/100 ml Galaxy Bag] Vancomycin/0.9 % Sod Chloride 2 gm IV Q12H 21 Days plast..bag 05/05/17 Unknown Rx [Vanco 2 Gram/250 ml-0.9% NaCl] Albuterol Sulfate [Proair 90 mcg IH Q4HR PRN #2 aer.pow.ba 01/19/18 Unknown Rx Respiclick] Famotidine [Pepcid] 20 mg PO BID #60 tablet 01/19/18 Unknown Rx Ondansetron [Zofran Odt] 4 mg PO Q8HR PRN #20 tab.rapdis 01/19/18 Unknown Rx Acetaminophen [Acetaminophen ORAL 650 mg PO Q4HR PRN #1 bottle 01/26/18 Unknown Rx LIQ] Ondansetron [Zofran Odt] 4 mg PO Q8HR PRN #20 tab.rapdis 01/26/18 Unknown Rx Promethazine [Phenergan SUPPOS] 50 mg MS Q6H PRN #20 supp.rect 01/26/18 Unknown Rx Allergies Allergy/AdvReac Type Severity Reaction Status Date / Time cephalexin [From Keflex] Allergy Unknown Verified 01/19/18 14:44 Penicillins Allergy Unknown Verified 01/19/18 14:44 Abscess Boil HPI - HPI Chief Complaint: Chest Pain Stated Complaint: CHEST PAIN, ODALYS, SOB, LUMP BETWEEN LEG AND CHEST Time Seen by Provider: 02/16/19 20:50 Home Medications: Home Medications Medication Instructions Recorded Confirmed Last Taken ALPRAZolam [Xanax TAB] 2 mg PO TID PRN 04/23/17 04/23/17 04/23/17 Aspirin [Aspirin EC] 81 mg PO DAILY 04/23/17 04/23/17 04/23/17 Furosemide [Lasix TAB] 40 mg PO QDAY 04/23/17 04/23/17 04/23/17 Previous Rx's Medication Instructions Recorded Last Taken Type Carvedilol [Coreg] 25 mg PO BID #60 tablet 05/05/17 Unknown Rx Insulin Aspart [NovoLOG Flexpen] 40 units SQ AC 30 Days #1 05/05/17 04/23/17 Rx Ketoconazole 2% [Nizoral] 1 applic TP BID #1 tube 05/05/17 Unknown Rx Lisinopril [Zestril TAB] 40 mg PO QDAY #30 tablet 05/05/17 Unknown Rx Oxycodone HCl/Acetaminophen 1 each PO Q6HR PRN #14 tablet 05/05/17 Unknown Rx [Percocet 10/325 mg] Meluvegooryi-Okox-Rxxtkbdu,Iso 4.5 gm IV Q8H 21 Days froz.piggy 05/05/17 Unknown Rx [Zosyn 4.5 gm/100 ml Galaxy Bag] Vancomycin/0.9 % Sod Chloride 2 gm IV Q12H 21 Days plast..bag 05/05/17 Unknown Rx [Vanco 2 Gram/250 ml-0.9% NaCl] Albuterol Sulfate [Proair 90 mcg IH Q4HR PRN #2 aer.pow.ba 01/19/18 Unknown Rx Respiclick] Famotidine [Pepcid] 20 mg PO BID #60 tablet 01/19/18 Unknown Rx Ondansetron [Zofran Odt] 4 mg PO Q8HR PRN #20 tab.rapdis 01/19/18 Unknown Rx Acetaminophen [Acetaminophen ORAL 650 mg PO Q4HR PRN #1 bottle 01/26/18 Unknown Rx LIQ] Ondansetron [Zofran Odt] 4 mg PO Q8HR PRN #20 tab.rapdis 01/26/18 Unknown Rx Promethazine [Phenergan SUPPOS] 50 mg MS Q6H PRN #20 supp.rect 01/26/18 Unknown Rx Allergies/Adverse Reactions: Allergies Allergy/AdvReac Type Severity Reaction Status Date / Time cephalexin [From Keflex] Allergy Unknown Verified 01/19/18 14:44 Penicillins Allergy Unknown Verified 01/19/18 14:44 ED Review of Systems ROS: Stated complaint: CHEST PAIN, ODALYS, SOB, LUMP BETWEEN LEG AND CHEST Other details as noted in HPI Comment: All other systems reviewed and negative Constitutional: fever Cardiovascular: denies: chest pain Gastrointestinal: denies: abdominal pain Skin: rash, lesions, change in color ED Past Medical Hx - Past Medical History Previous Medical History?: Yes Hx Hypertension: Yes Hx Congestive Heart Failure: Yes Hx Diabetes: Yes Hx Deep Vein Thrombosis: No Hx Psychiatric Treatment: Yes Hx COPD: Yes (Home O2) Additional medical history: ADD, MRSA. anxiety. lung obstruction (right). Morbid obesity - Surgical History Past Surgical History?: No Hx Pacemaker: No Hx Internal Defibrillator: No - Social History Smoking Status: Never Smoker Substance Use Type: None - Medications Home Medications: Home Medications Medication Instructions Recorded Confirmed Last Taken Type ALPRAZolam [Xanax TAB] 2 mg PO TID PRN 04/23/17 04/23/17 04/23/17 History Aspirin [Aspirin EC] 81 mg PO DAILY 04/23/17 04/23/17 04/23/17 History Furosemide [Lasix TAB] 40 mg PO QDAY 04/23/17 04/23/17 04/23/17 History Carvedilol [Coreg] 25 mg PO BID #60 tablet 05/05/17 Unknown Rx Insulin Aspart [NovoLOG Flexpen] 40 units SQ AC 30 Days #1 05/05/17 04/23/17 04/23/17 Rx Ketoconazole 2% [Nizoral] 1 applic TP BID #1 tube 05/05/17 Unknown Rx Lisinopril [Zestril TAB] 40 mg PO QDAY #30 tablet 05/05/17 Unknown Rx Oxycodone HCl/Acetaminophen 1 each PO Q6HR PRN #14 tablet 05/05/17 Unknown Rx [Percocet 10/325 mg] Dkhsnesmtnln-Vhuu-Fxzssxoq,Iso 4.5 gm IV Q8H 21 Days froz.piggy 05/05/17 Unknown Rx [Zosyn 4.5 gm/100 ml Galaxy Bag] Vancomycin/0.9 % Sod Chloride 2 gm IV Q12H 21 Days plast..bag 05/05/17 Unknown Rx [Vanco 2 Gram/250 ml-0.9% NaCl] Albuterol Sulfate [Proair 90 mcg IH Q4HR PRN #2 aer.pow.ba 01/19/18 Unknown Rx Respiclick] Famotidine [Pepcid] 20 mg PO BID #60 tablet 01/19/18 Unknown Rx Ondansetron [Zofran Odt] 4 mg PO Q8HR PRN #20 tab.rapdis 01/19/18 Unknown Rx Acetaminophen [Acetaminophen ORAL 650 mg PO Q4HR PRN #1 bottle 01/26/18 Unknown Rx LIQ] Ondansetron [Zofran Odt] 4 mg PO Q8HR PRN #20 tab.rapdis 01/26/18 Unknown Rx Promethazine [Phenergan SUPPOS] 50 mg MS Q6H PRN #20 supp.rect 01/26/18 Unknown Rx ED Physical Exam - General Limitations: No Limitations General appearance: alert, in no apparent distress, other (nontoxic but appears ill uncomfortable) - Head Head exam: Present: atraumatic, normocephalic - Eye Eye exam: Present: normal appearance - ENT ENT exam: Present: mucous membranes moist - Neck Neck exam: Present: normal inspection. Absent: tenderness, meningismus - Respiratory Respiratory exam: Present: normal lung sounds bilaterally, other (large palpable mass approximately 4 cm mass under right areola, no mass palpated on left breast). Absent: respiratory distress, wheezes, rales, rhonchi, chest wall tenderness, accessory muscle use, decreased breath sounds, prolonged expiratory - Cardiovascular Cardiovascular Exam: Present: regular rate, normal rhythm. Absent: systolic murmur, diastolic murmur, rubs, gallop - GI/Abdominal GI/Abdominal exam: Present: soft, normal bowel sounds. Absent: distended, tenderness, guarding, rebound - Rectal Rectal exam: Present: deferred - exam: Present: other (erythema edematous induration perineal region extending to the left inguinal region and left portion of scrotum multiple testes normal shaft) - Extremities Exam Extremities exam: Present: normal inspection - Back Exam Back exam: Present: normal inspection - Neurological Exam Neurological exam: Present: alert, oriented X3 - Psychiatric Psychiatric exam: Present: normal affect, normal mood - Skin Skin exam: Present: warm, dry, intact, normal color. Absent: rash ED Course Vital Signs 02/16/19 20:19 Temperature 99.4 F Pulse Rate 98 H Respiratory 18 Rate Blood Pressure 153/98 O2 Sat by Pulse 98 Oximetry ED Medical Decision Making - Lab Data Result diagrams: 02/16/19 20:56 02/16/19 20:56 Laboratory Results - last 24 hr 02/16/19 02/16/19 02/16/19 20:56 20:56 20:56 WBC 22.6 H RBC 4.77 Hgb 14.1 Hct 42.7 MCV 90 MCH 30 MCHC 33 RDW 13.6 Plt Count 256 PT 13.8 INR 1.09 APTT 26.6 Sodium 135 L Potassium 3.7 Chloride 95.8 L Carbon Dioxide 26 Anion Gap 17 BUN 8 L Creatinine 0.6 L Estimated GFR > 60 BUN/Creatinine Ratio 13 Glucose 231 H Lactic Acid Calcium 8.8 Troponin T < 0.010 02/16/19 02/16/19 02/16/19 21:38 23:12 23:12 WBC RBC Hgb Hct MCV MCH MCHC RDW Plt Count PT INR APTT Sodium Potassium Chloride Carbon Dioxide Anion Gap BUN Creatinine Estimated GFR BUN/Creatinine Ratio Glucose Lactic Acid 2.00 1.10 Calcium Troponin T < 0.010 - EKG Data 02/17/19 00:20 EKG obtained 2022 Normal sinus rhythm rate 95 beats a minute normal axis intervals no ST elevation APCs present EKG unchanged from 01/26/2018 - Radiology Data Radiology results: report reviewed CT pelvis with IV contrast according to radiology report: - Medical Decision Making 1. Sepsis with leukocytosis and low-grade fever due to perineal groin cellulitis concerning in patient with with diabetes mellitus: Broad-spectrum antibiotics were initiated with Zosyn and vancomycin. I did see the patient has allergies to penicillin and cephalexin. However according to electronic record he has he did tolerate Zosyn on previous hospitalization. I have consulted Dr. Balderas general surgeon who agreed to evaluate the patient. 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 I discussed case with urologist Dr. Norton. He sena mmended nothing by mouth status. Urologist Dr. Norton anticipates surgical treatment within the next 12 hours. He agreed to evaluate patient and treat accordingly. 2. Right breast mass: I strongly encourage outpatient evaluation with mammogram and primary care physician involvement. Critical care attestation.: If time is entered above; I have spent that time in minutes in the direct care of this critically ill patient, excluding procedure time. ED Disposition Clinical Impression: Sepsis, IDDM (insulin dependent diabetes mellitus), Ana Laura's gangrene Disposition: OP ADMIT IP TO THIS HOSP Is pt being admited?: Yes Condition: Stable
[2019-02-17] MEDS ORDERED: MORPHINE 4 MG/1 ML INJ IV ONE ×2 (00:48→05:33)
[2019-02-17] MEDS ORDERED: VANCOMYCIN 2,000 MG in SODIUM CHLORIDE 0.9% 500 ML 500 ML IV ONE (01:00)
--- NOTE | 2019-02-17 01:08 | Cat Scan Report ---
CT PELVIS WITH CONTRAST INDICATION: Left inguinal and perineal cellulitis CONTRAST: 100 cc Omnipaque 300 IV COMPARISON: 01/19/[address] scans at this location are performed using CT dose reduction for ALARA by means of automated e xposure control. NOTE: Resolution is decreased and artifact is introduced by the patient's size. FINDINGS: Mild colonic diverticulosis is seen without evidence of diverticulitis. Appendix appears wi thin normal limits. No intrapelvic free fluid is noted. No ureteral dilatation or calculi are noted. No pelvic masses are noted. Prostate appears within normal limits. There is mild enlargement of a lef t obturator node to a length of 2.1 cm with short axis diameter 12 mm. Only a trace minimal nodes wer e seen in this area previously 2018. No other intrapelvic adenopathy is seen. Shotty nodes are seen i n the right inguinal area. The left inguinal fat shows moderate stranding which extends inferiorly and becomes more prominent in the scrotum. The scrotal wall appears diffusely edematous. Stranding is seen mildly to the base of t he penis of the penis is not clearly involvement with inflammation. In the perineum on the left at th e posterior base of the scrotum more prominent fluid type mixed density is seen which is not clearly organized but there is a suggestion of early organization. A tiny amount of gas is seen in this area. In the lower left inguinal area at the junction with the perineum there is a very superficial small band of fluid which may just be focal edema and is not obviously organized. No other organized fluid is seen. Mildly prominent and reactive appearing lymph nodes are seen in the left inguinal area. This inflammatory process does not extend into the true pelvis and does not appear to involve the periana l area. IMPRESSION: Inflammatory process is seen in the left inguinal area and perineum which becomes most pr ominent in the lower posterior perineum and scrotum. No I do not clearly see an abscess there is a galdamez ggestion of early formation in the lower left posterior peritoneum as discussed with a tiny air bubbl e seen which could relate to an infectious process. This does not extend into the pelvis itself. Mild adenopathy in the left inguinal area and left obturator region probably is reactive. Signer Name: Rosales Ortez MD Signed: 02/17/2019 1:03 AM Workstation Name: [id number]
[2019-02-17] MEDS ORDERED: SODIUM CHLORIDE 0.9% 1000 ML 1,000 ML IV ONE (02:18)
[2019-02-17 04:59] LABS: Band Neutrophils # (Manual) 0.5 K/mm3; Basophils % (Manual) 0 % (0.0-1.8); Eosinophils % (Manual) 0 % (0.0-4.3); Total Cells Counted 100
[2019-02-17 05:00] LABS: Macrocytosis Few; Ovalocytes Few; Platelet Estimate Consistent w Auto
--- NOTE | 2019-02-17 06:24 | Anesthesia Consultation ---
Anesthesia Consult and Med Hx Date of service: 02/17/19 - Airway Anesthetic Teeth Evaluation: Good ROM Head & Neck: Adequate Mental/Hyoid Distance: Adequate Mallampati Class: Class II Intubation Access Assessment: Possibly Difficult - Pulmonary Exam CTA: Yes - Cardiac Exam Cardiac Exam: RRR - Pre-Operative Health Status ASA Pre-Surgery Classification: ASA4, Emergency Proposed Anesthetic Plan: General - Pulmonary Hx Smoking: Yes (former smoker) COPD: Yes Home Oxygen Therapy: Yes (2L NC continuous) Hx Sleep Apnea: Yes (compliant with BiPAP) - Cardiovascular System Hx Hypertension: Yes Hx Heart Attack/AMI: No (hx CHF; last TTE "fine" in 2018 per patient. None in [facility] records.) Hx Angina: No Hx Percutaneous Transluminal Coronary Angioplasty (PTCA): No Hx Cardia Arrhythmia: No - Central Nervous System CVA: No Hx Psychiatric Problems: Yes (anxiety) - Gastrointestinal Hx Gastroesophageal Reflux Disease: Yes (well controlled) - Endocrine Hx Renal Disease: No Hx Liver Disease: No (fatty liver; no hx liver dysfunction) Hx Insulin Dependent Diabetes: Yes Hx Thyroid Disease: No - Hematic Hx Anemia: No - Other Systems Hx Obesity: Yes (BMI 61.7) - Additional Comments Anesthesia Medical History Comments: PMH obesity, ?CHF, HTN, IDDM, COPD on home O2, and ARMANDO presenting with scrotal abcess 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 HD stable. Denies hx chest pain, dyspnea, orthopnea. EKG unchanged from prior.
--- NOTE | 2019-02-17 06:25 | Anesthesia Day of Surgery ---
Anesthesia Day of Surgery - Day of Surgery Patient Examined: Yes Patient H&P Reviewed: Yes Patient is NPO: Yes
--- NOTE | 2019-02-17 09:54 | Ultrasound Report ---
ULTRASOUND TESTICULAR DOPPLER COMPLETE HISTORY: Scrotal pain for 3 days, swelling for one day TECHNIQUE: Transcranial grayscale images with color and spectral Doppler imaging. FINDINGS: Correlation is made with the CT pelvis dated 02/17/2019. The right testicle measures 3.1 x 2.5 x 2.7 cm. The left testicle measures 4.0 x 2.2 x 2.9 cm. No kassandra dence for testicular cyst, mass or calcifications. The testicles are slightly heterogeneous in echote xture. Spectral Doppler waveforms demonstrate arterial flow to both testicles. The left epididymis is normal. The right epididymis is not confidently identified on the given images . There is moderate to severe diffuse scrotal skin thickening. No evidence for abscess or significant h ydrocele/varicocele. IMPRESSION: Scrotal skin thickening suggesting cellulitis. No abscess is visualized. Unremarkable testicles and left epididymis. The right epididymis is not confidently identified. Signer Name: Bimal Sanford Jr, MD Signed: 02/17/2019 9:50 AM Workstation Name: [id number]
[2019-02-17] MEDS ORDERED: ACETAMINOPHEN 325 MG TAB PO PRN (10:44)
[2019-02-17] MEDS ORDERED: ONDANSETRON 4 MG/2 ML INJ IV PRN (10:44)
--- NOTE | 2019-02-17 10:47 | History and Physical Report ---
History of Present Illness Date of examination: 02/17/19 Date of admission: 02/17/19 Chief complaint: Swelling, pain scrotum History of present illness: Patient is 43 yo with hypertension, CHF, COPD, sleep apnea on CPAP, diabetes,morbid obesity. He presents with 2 days of pain swelling redness scrotal area. He says symptoms started 2 days ago as a small bump in scrotum, he applied warm compress, later became bigger, draining foul smelling. He denies any fever. He therefore came to ED for evaluation. He was seen and evaluated in Ed and diagnosed with cellulitis scrotal and perineal region. ED Physician discussed with Urology, to andres to OR today. Will admit. Past History Past Medical History: COPD, diabetes, heart failure, hypertension, hyperlipidemia, other (sleep apnea, uses CPAP at night) Past Surgical History: No surgical history Social history: full code. denies: alcohol abuse (Quit smoking) Family history: diabetes, other (COPD) Medications and Allergies Allergies Allergy/AdvReac Type Severity Reaction Status Date / Time cephalexin [From Keflex] Allergy Unknown Verified 01/19/18 14:44 Penicillins Allergy Unknown Verified 01/19/18 14:44 Home Medications Medication Instructions Recorded Confirmed Last Taken Type Aspirin [Aspirin EC] 81 mg PO DAILY 04/23/17 02/17/19 04/23/17 History Furosemide [Lasix TAB] 40 mg PO QDAY 04/23/17 02/17/19 04/23/17 History Lisinopril [Zestril TAB] 40 mg PO QDAY #30 tablet 05/05/17 02/17/19 Unknown Rx Albuterol Sulfate [Proair 90 mcg IH Q4HR PRN #2 aer.pow.ba 01/19/18 02/17/19 Unknown Rx Respiclick] Carvedilol [Coreg] 25 mg PO DAILY 02/17/19 02/17/19 Unknown History Famotidine [Pepcid] 20 mg PO DAILY 02/17/19 02/17/19 Unknown History Active Meds: Active Medications Acetaminophen (Tylenol) 650 mg PO Q4H PRN PRN Reason: Pain MILD(1-3)/Fever >100.5/HUGHES Morphine Sulfate (Morphine) 2 mg IV Q4H PRN PRN Reason: Pain, Moderate (4-6) Ondansetron HCl (Zofran) 4 mg IV Q8H PRN PRN Reason: Nausea And Vomiting Sodium Chloride (Sodium Chloride Flush Syringe 10 Ml) 10 ml IV BID KENNETH Sodium Chloride (Sodium Chloride Flush Syringe 10 Ml) 10 ml IV PRN PRN PRN Reason: LINE FLUSH Review of Systems All systems: negative (No fever, no cough, no chest pain. All other systems reviewed and are negative.) Exam - Physical Exam Narrative exam: Gen: Not in acute distress,lying in bed, morbidly obese HEENT: Normocephalic, atraumatic Neck: supple, no JVD Heart: S1 and S2 reg, no murmurs, rubs or gallop Lungs: Clear to auscultation, no rhonchi, no wheeze Abd: soft, non tender, non distended, normal BS, Ext: No edema, no clubbing, no cyanosis Neuro: Awake, alert, oriented X 3, no focal neurological signs : swollen tender scrotum, perineal region - Constitutional Vitals: Temp Pulse Resp BP Pulse Ox 99.4 F 95 H 12 157/88 97 02/16/19 20:19 02/17/19 08:24 02/17/19 08:24 02/17/19 08:24 02/17/19 08:24 Results - Labs CBC & Chem 7: 02/19/19 05:14 02/19/19 05:14 Labs: Abnormal lab results 02/16/19 02/16/19 Range/Units 20:56 20:56 WBC 22.6 H (4.5-11.0) K/mm3 Seg Neuts % (Manual) 87.0 H (40.0-70.0) % Lymphocytes % (Manual) 6.0 L (13.4-35.0) % Seg Neutrophils # Man 19.7 H (1.8-7.7) K/mm3 Monocytes # (Manual) 1.1 H (0.0-0.8) K/mm3 Sodium 135 L (137-145) mmol/L Chloride 95.8 L (98-107) mmol/L BUN 8 L (9-20) mg/dL Creatinine 0.6 L (0.8-1.5) mg/dL Glucose 231 H (75-100) mg/dL Assessment and Plan Cellulitis in perineal/inguinal area admit to Surgical floor Urology consulted. He was evaluated by Dr. Thayer for surgery today consult ID - given jajao and Epifanio in ED sepsis due to cellulitis started empiric iv Antibiotics HTN Monitor BP Diabetes mellitus type 2 Fingerstick glucose Chronic CHF Lasix COPD Stable Hyperlipidemia Sleep apnea CPAP at night Full code status
[2019-02-17] MEDS ORDERED: METOPROLOL TARTRATE 5 MG/5 ML INJ IV ONE (10:48)
[2019-02-17] MEDS ORDERED: VANCOMYCIN PHARMACY TO DOSE IV SCH (11:00)
[2019-02-17] MEDS: MORPHINE 2 MG/1 ML INJ IV PRN ×2 (11:01→18:04)
[2019-02-17] MEDS ORDERED: SODIUM CHLORIDE 0.9% 1000 ML 1,000 ML ONE (13:33)
[2019-02-17] MEDS ORDERED: fentaNYL 100 MCG/2 ML INJ IV NR (13:37)
[2019-02-17] MEDS: PIPERACIL/TAZOBACTA 4.5/NS 100 4.5 GM/100 ML VIAL IV SCH ×2 (13:45→20:02)
[2019-02-17] MEDS: SODIUM CHLORIDE 0.9% 1000 ML 1,000 ML IV SCH (13:57)
[2019-02-17] MEDS ORDERED: HYDROmorphone 1 MG/1 ML INJ ONE (14:11)
[2019-02-17] MEDS ORDERED: PROPOFOL 200 MG/20 ML VIAL IV ONE (14:11)
[2019-02-17] MEDS ORDERED: LIDOCAINE MPF (2%) 20 MG/1 ML VIAL 5 ML ONE (14:11)
--- NOTE | 2019-02-17 14:18 | Post Operative Note ---
Pre-op diagnosis: scrotal abscess, cellulitis, infections Findings: perineal lateralizeng left w/ ant extension toware inguinal canal Procedure: cysto, I&D scrotal abscess / perineal abscess Anesthesia: TIFFANIEA Surgeon: JOSE LOYD Estimated blood loss: minimal Pathology: none Specimen disposition: to lab (wound cx) Condition: stable Disposition: PACU
[2019-02-17] MEDS: VANCOMYCIN 2,000 MG in SODIUM CHLORIDE 0.9% 500 ML 500 ML IV SCH ×2 (14:40→20:59)
--- NOTE | 2019-02-17 14:53 | Consultation ---
HISTORY OF PRESENT ILLNESS: The patient is a 43-year-old gentleman who had previous abscess drained about [address] Flores. He presents with swelling in the left inguinal area once again. There is evidence of some mild inflammation. His white count was 22,000. He is diabetic. He is morbidly obese, but lost some weight. He now presents for urological consultation. PAST MEDICAL HISTORY: Diabetes, hypertension, heart failure and obesity. PAST SURGICAL HISTORY: As mentioned above. MEDICATIONS: Xanax, aspirin, Lasix and insulin. ALLERGIES: PENICILLIN AND CEPHALOSPORINS. SOCIAL HISTORY: He has a long history of smoking, quit in the past. FAMILY HISTORY: Noncontributory. REVIEW OF SYSTEMS: Increasing swelling in the left inguinal area. PHYSICAL EXAMINATION: GENERAL: He is awake. He is in no distress. He is stable. ABDOMEN: Soft, obese, nondistended. GENITALIA: Circumcised. He has some swelling and inflammatory process, left scrotum, does not look severe, but it is mildly tender. Digital rectal exam, I did not feel any irregularities. He is not very compliant. IMPRESSION: Inflammatory process, left hemiscrotum for incision and possible drainage, IV antibiotics. He appears to be stable. His white count is elevated. Informed consent was obtained with him and his . We will make an incision there and see if there is any drainage and send some cultures. JOB# [id number] ASHISH/GALI
[2019-02-17] MEDS ORDERED: fentaNYL 100 MCG/2 ML INJ ONE (15:18)
[2019-02-17] MEDS ORDERED: GENTAMICIN 40 MG/ML VIAL 2 ML ONE (16:04)
--- NOTE | 2019-02-17 16:11 | Event Note ---
Date: 02/17/19 Attempted to see patient, in OR. Will see tomorrow. In light of concern of Ana Laura gangrene, recommend starting clindamycin 900mg q8h and continuing vancomycin and Zosyn. Yelena Watkins MD [facility] ([facility]) M: [phone] O: [phone] F: [phone]
[2019-02-17] MEDS ORDERED: SODIUM HYPOCHLORITE, DAKIN'S 1/2 STRENGTH (0.25%) 473 ML TOPICAL SOLN TP ONE (16:55)
--- NOTE | 2019-02-17 17:48 | Post Anesthesia Evaluation ---
- Post Anesthesia Evaluation Patient Participated: Yes Airway Patent: Yes Stable Respiratory Function: Yes Nausea/Vomiting: No Temp > 96.8F: Yes Pain Manageable: Yes Adequeate Hydration: Yes Anesthesia Complications: No
[2019-02-17] MEDS: HYDROmorphone 1 MG/1 ML INJ IV PRN (21:33)
[2019-02-18] MEDS: HYDROmorphone 1 MG/1 ML INJ IV PRN ×6 (01:07→23:17)
[2019-02-18] MEDS: PIPERACIL/TAZOBACTA 4.5/NS 100 4.5 GM/100 ML VIAL IV SCH ×3 (03:16→21:16)
[2019-02-18] MEDS: VANCOMYCIN 2,000 MG in SODIUM CHLORIDE 0.9% 500 ML 500 ML IV SCH ×3 (04:04→22:27)
[2019-02-18 05:36] LABS: Hematocrit 37.1 % (35.5-45.6); Hemoglobin 12.1 gm/dl (11.8-15.2); Mean Corpuscular HGB Conc 33 % (32-34); Mean Corpuscular Volume 90 fl (84-94); Platelet Count 223 K/mm3 (140-440); Red Blood Count 4.12 M/mm3 (3.65-5.03); Red Cell Distribution Width 13.9 % (13.2-15.2)
[2019-02-18 05:59] LABS: BUN/Creatinine Ratio 18; Blood Urea Nitrogen 11 mg/dL (9-20); Calcium 8.2 mg/dL (8.4-10.2); Hemolysis Index 6
[2019-02-18 08:49] LABS: Total Cells Counted 100
[2019-02-18 08:50] LABS: Basophils % (Manual) 0 % (0.0-1.8); Eosinophils % (Manual) 0 % (0.0-4.3)
[2019-02-18 08:51] LABS: Large Platelets Rare; Platelet Estimate Consistent w Auto; RBC Morphology Normal
--- NOTE | 2019-02-18 09:14 | Progress Note ---
Subjective Date of service: 02/18/19 Interval history: cysto, I&D scrotal abscess / perineal abscess - 02-17-19 (Dr. Vasquez) feels getter wound clean -- packing intact munguia clear dc munguia consult wound care Objective - Constitutional Vitals: Vital Signs - 12hr 02/17/19 02/18/19 02/18/19 23:42 00:35 04:01 Temperature 98.6 F 98.2 F Pulse Rate 70 53 L 61 Respiratory 20 20 Rate Blood Pressure 118/58 138/68 O2 Sat by Pulse 98 97 94 Oximetry 02/18/19 02/18/19 07:17 07:46 Temperature 98.0 F Pulse Rate 56 L Respiratory 20 Rate Blood Pressure 138/87 O2 Sat by Pulse 91 100 Oximetry - Labs CBC & Chem 7: 02/18/19 05:16 02/18/19 05:16 Labs: Abnormal lab results 02/17/19 02/17/19 02/17/19 Range/Units 11:02 13:22 16:58 WBC (4.5-11.0) K/mm3 Seg Neuts % (Manual) (40.0-70.0) % Lymphocytes % (Manual) (13.4-35.0) % Seg Neutrophils # Man (1.8-7.7) K/mm3 Potassium (3.6-5.0) mmol/L Creatinine (0.8-1.5) mg/dL Glucose (75-100) mg/dL POC Glucose 132 H 133 H 117 H (70-105) Calcium (8.4-10.2) mg/dL 02/17/19 02/18/19 02/18/19 Range/Units 20:58 05:16 05:16 WBC 25.4 H (4.5-11.0) K/mm3 Seg Neuts % (Manual) 92.0 H (40.0-70.0) % Lymphocytes % (Manual) 5.0 L (13.4-35.0) % Seg Neutrophils # Man 23.4 H (1.8-7.7) K/mm3 Potassium 3.5 L (3.6-5.0) mmol/L Creatinine 0.6 L (0.8-1.5) mg/dL Glucose 107 H (75-100) mg/dL POC Glucose 111 H (70-105) Calcium 8.2 L (8.4-10.2) mg/dL 02/18/19 Range/Units 07:30 WBC (4.5-11.0) K/mm3 Seg Neuts % (Manual) (40.0-70.0) % Lymphocytes % (Manual) (13.4-35.0) % Seg Neutrophils # Man (1.8-7.7) K/mm3 Potassium (3.6-5.0) mmol/L Creatinine (0.8-1.5) mg/dL Glucose (75-100) mg/dL POC Glucose 112 H (70-105) Calcium (8.4-10.2) mg/dL Medications & Allergies - Medications Allergies/Adverse Reactions: Allergies cephalexin [From Keflex] Allergy (Verified 01/19/18 14:44) Unknown Penicillins Allergy (Verified 01/19/18 14:44) Unknown Home Medications: Home Medications Medication Instructions Recorded Confirmed Last Taken Type Aspirin [Aspirin EC] 81 mg PO DAILY 04/23/17 02/17/19 04/23/17 History Furosemide [Lasix TAB] 40 mg PO QDAY 04/23/17 02/17/19 04/23/17 History Lisinopril [Zestril TAB] 40 mg PO QDAY #30 tablet 05/05/17 02/17/19 Unknown Rx Albuterol Sulfate [Proair 90 mcg IH Q4HR PRN #2 aer.pow.ba 01/19/18 02/17/19 Unknown Rx Respiclick] Carvedilol [Coreg] 25 mg PO DAILY 02/17/19 02/17/19 Unknown History Famotidine [Pepcid] 20 mg PO DAILY 02/17/19 02/17/19 Unknown History Active Medications: Generic Name Dose Route Start Last Admin Trade Name Freq PRN Reason Stop Dose Admin Acetaminophen 650 mg 02/17/19 10:44 Tylenol PO Q4H PRN Pain MILD(1-3)/Fever >100.5/HUGHES Albuterol 2.5 mg 02/18/19 10:00 Proventil IH Q4HRT PRN Shortness Of Breath Famotidine 20 mg 02/18/19 10:00 Pepcid PO DAILY KENNETH Hydralazine HCl 10 mg 02/17/19 10:48 Apresoline IV Q4HR PRN SBP>170 or DBP>110 Hydromorphone HCl 1 mg 02/17/19 21:10 02/18/19 07:52 Dilaudid IV 1 mg Q3H PRN Administration Severe pain more than 7/10 Piperacillin Sod/Tazobactam Sod 4.5 gm in 100 mls @ 200 mls/hr 02/17/19 12:00 02/18/19 03:16 Zosyn/Ns 4.5gm/100ml IV 200 mls/hr Q8H KENNETH Administration Protocol Sodium Chloride 1,000 mls @ 42 mls/hr 02/17/19 14:00 02/17/19 13:57 Nacl 0.9% 1000 Ml IV 42 mls/hr DIRECT KENNETH Administration Clindamycin HCl 900 mg in 50 mls @ 100 mls/hr 02/17/19 18:00 02/18/19 01:02 Cleocin 900 Mg/50 Ml IV 100 mls/hr Q8H KENNETH Administration Protocol Vancomycin HCl 2,000 mg/ 540 mls @ 250 mls/hr 02/18/19 14:00 Sodium Chloride IV Q8HR KENNETH Lisinopril 40 mg 02/18/19 10:00 Zestril PO QDAY KENNETH Morphine Sulfate 2 mg 02/17/19 10:44 02/17/19 18:04 Morphine IV 2 mg Q4H PRN Administration Pain, Moderate (4-6) Ondansetron HCl 4 mg 02/17/19 10:44 Zofran IV Q8H PRN Nausea And Vomiting Sodium Chloride 10 ml 02/17/19 22:00 02/17/19 21:39 Sodium Chloride Flush Syringe 10 Ml IV 10 ml BID KENNETH Administration Sodium Chloride 10 ml 02/17/19 10:44 Sodium Chloride Flush Syringe 10 Ml IV PRN PRN LINE FLUSH
[2019-02-18] MEDS ORDERED: carvediloL 25 MG TAB PO SCH (10:00)
--- NOTE | 2019-02-18 10:14 | Consultation ---
History of Present Illness - Reason for Consult Consult date: 02/18/19 - History of Present Illness 43 yo M PMHx HTN, CHF, DM2, sleep apnea admitted with scrotal pain. He noted that his symptoms began approxmiately 2 days prior to admission with a small bump on his scrotum. He aplpied a warm compress to the bump and it enlarged and began draining purulent material. He was taken to the OR by urology yesterday for drainage of the scrotal abscess/perineal abscess as well as cystoscopy. He is unsure how this all began. Denies shaving his genitals, not recent trauma or wounds. Denies fevers, sweats, chills. Afebrile since admission with a white count of 25 (mild increase post-op). 02/16 BCx are nGTD, surgical cultures from 02/17 are NGTD. He is current;y receiving vancomycin, Zosyn, and clindamycin. Imaging personally reviewed: Testicular US: scrotal skin thickening suggesting cellulitis CXR: No abnormality Pelvis CT: Inflammatory process in the L inguinal area and perineum. No clear abscess Review of systems: Bold if positive; otherwise negative GENERAL: fever, chills, weight loss, fatigue, night sweats EYES: blurry vision, eye pain HENT: headache, hearing loss, sore throat, dysphagia, sinus pain CARDIO: chest pain, palpitations, orthopnea PULM: shortness of breath, wheezing, cough, sputum, hemoptysis GI: nausea, vomiting, diarrhea, abdominal pain, blood in stool : urinary frequency, urgency, dysuria, urethral discharge, scrotal pain MSK: joint pain, back pain, swelling SKIN: rash, redness HEME: easy bruising, bleeding Past History Past Medical History: diabetes, heart failure, hypertension, hyperlipidemia, other (sleep apnea, uses CPAP at night) Social history: full code. denies: alcohol abuse (Quit smoking) Family history: diabetes, other (COPD) Medications and Allergies Allergies Allergy/AdvReac Type Severity Reaction Status Date / Time cephalexin [From Keflex] Allergy Unknown Verified 01/19/18 14:44 Penicillins Allergy Unknown Verified 01/19/18 14:44 Home Medications Medication Instructions Recorded Confirmed Last Taken Type Aspirin [Aspirin EC] 81 mg PO DAILY 04/23/17 02/17/19 04/23/17 History Furosemide [Lasix TAB] 40 mg PO QDAY 04/23/17 02/17/19 04/23/17 History Lisinopril [Zestril TAB] 40 mg PO QDAY #30 tablet 05/05/17 02/17/19 Unknown Rx Albuterol Sulfate [Proair 90 mcg IH Q4HR PRN #2 aer.pow.ba 01/19/18 02/17/19 Unknown Rx Respiclick] Carvedilol [Coreg] 25 mg PO DAILY 02/17/19 02/17/19 Unknown History Famotidine [Pepcid] 20 mg PO DAILY 02/17/19 02/17/19 Unknown History Active Meds: Active Medications Acetaminophen (Tylenol) 650 mg PO Q4H PRN PRN Reason: Pain MILD(1-3)/Fever >100.5/HUGHES Albuterol (Proventil) 2.5 mg IH Q4HRT PRN PRN Reason: Shortness Of Breath Famotidine (Pepcid) 20 mg PO DAILY KENNETH Hydralazine HCl (Apresoline) 10 mg IV Q4HR PRN PRN Reason: SBP>170 or DBP>110 Hydromorphone HCl (Dilaudid) 1 mg IV Q3H PRN PRN Reason: Severe pain more than 7/10 Last Admin: 02/18/19 07:52 Dose: 1 mg Documented by: Piperacillin Sod/Tazobactam Sod (Zosyn/Ns 4.5gm/100ml) 4.5 gm in 100 mls @ 200 mls/hr IV Q8H KENNETH; Protocol Last Admin: 02/18/19 03:16 Dose: 200 mls/hr Documented by: Sodium Chloride (Nacl 0.9% 1000 Ml) 1,000 mls @ 42 mls/hr IV DIRECT KENNETH Last Admin: 02/17/19 13:57 Dose: 42 mls/hr Documented by: Clindamycin HCl (Cleocin 900 Mg/50 Ml) 900 mg in 50 mls @ 100 mls/hr IV Q8H KENNETH; Protocol Last Admin: 02/18/19 01:02 Dose: 100 mls/hr Documented by: Vancomycin HCl 2,000 mg/ (Sodium Chloride) 540 mls @ 250 mls/hr IV Q8HR KENNETH Lisinopril (Zestril) 40 mg PO QDAY KENNETH Morphine Sulfate (Morphine) 2 mg IV Q4H PRN PRN Reason: Pain, Moderate (4-6) Last Admin: 02/17/19 18:04 Dose: 2 mg Documented by: Ondansetron HCl (Zofran) 4 mg IV Q8H PRN PRN Reason: Nausea And Vomiting Sodium Chloride (Sodium Chloride Flush Syringe 10 Ml) 10 ml IV BID [facility] Last Admin: 02/17/19 21:39 Dose: 10 ml Documented by: Sodium Chloride (Sodium Chloride Flush Syringe 10 Ml) 10 ml IV PRN PRN PRN Reason: LINE FLUSH Physical Examination - Physical Exam Narrative exam: General Normal appearance, well developed, no acute distress Eyes - PERRLA, EOM intact ENT - Moist mucous membranes, no lymphadenopathy Neck - No noticeable or palpable swelling, redness or rash around throat or on face Lymph Nodes - No lymphadenopathy Cardiovascular - RRR no m/r/g, no JVD, no carotid bruits Lungs - Clear to auscultation, no use of accessory muscles, no crackles or wheezes. Skin - No rashes, skin warm and dry, no erythematous areas. Genitals wrapped. Abdomen - Normal bowel sounds, abdomen soft and nontender Extremities - No edema, cyanosis or clubbing Musculoskeletal - 5/5 strength, normal range of motion, no swollen or erythematous joints. Neurological Alert and oriented x 3, CN 2-12 grossly intact. : L scrotum edematous, painful - Constitutional Vitals: Vital Signs Temp Pulse Resp BP Pulse Ox 98.0 F 56 L 20 138/87 100 02/18/19 07:17 02/18/19 07:17 02/18/19 07:17 02/18/19 07:17 02/18/19 07:46 Temperature -Last 24 Hours Temperature 98.0 F Temperature 98.2 F Temperature 98.6 F Temperature 98.3 F Temperature 98.1 F Temperature 97.7 F Temperature 98.6 F Temperature 98.6 F Temperature 98.1 F Results - Labs CBC & Chem 7: 02/18/19 05:16 02/18/19 05:16 Labs: Abnormal lab results 02/17/19 02/17/19 02/17/19 Range/Units 11:02 13:22 16:58 WBC (4.5-11.0) K/mm3 Seg Neuts % (Manual) (40.0-70.0) % Lymphocytes % (Manual) (13.4-35.0) % Seg Neutrophils # Man (1.8-7.7) K/mm3 Potassium (3.6-5.0) mmol/L Creatinine (0.8-1.5) mg/dL Glucose (75-100) mg/dL POC Glucose 132 H 133 H 117 H (70-105) Calcium (8.4-10.2) mg/dL 02/17/19 02/18/19 02/18/19 Range/Units 20:58 05:16 05:16 WBC 25.4 H (4.5-11.0) K/mm3 Seg Neuts % (Manual) 92.0 H (40.0-70.0) % Lymphocytes % (Manual) 5.0 L (13.4-35.0) % Seg Neutrophils # Man 23.4 H (1.8-7.7) K/mm3 Potassium 3.5 L (3.6-5.0) mmol/L Creatinine 0.6 L (0.8-1.5) mg/dL Glucose 107 H (75-100) mg/dL POC Glucose 111 H (70-105) Calcium 8.2 L (8.4-10.2) mg/dL 02/18/19 Range/Units 07:30 WBC (4.5-11.0) K/mm3 Seg Neuts % (Manual) (40.0-70.0) % Lymphocytes % (Manual) (13.4-35.0) % Seg Neutrophils # Man (1.8-7.7) K/mm3 Potassium (3.6-5.0) mmol/L Creatinine (0.8-1.5) mg/dL Glucose (75-100) mg/dL POC Glucose 112 H (70-105) Calcium (8.4-10.2) mg/dL Assessment and Plan Cultures: BCx 02/16 - NGTD SurgCx 02/17 - NGTD, no PMN Assessment: 43 yo M PMHx HTN, CHF, DM2, sleep apnea admitted with scrotal cellulitis and abscess. 1. Scrotal cellulitis and abscess - ?Ana Laura gangrene. Would continue current antibiotics of vancomycin, Zosyn, and clindamycin pending surgical culture results and possible further debridement. Unclear source of infection, no obvious portal of entry from history. Pt is diabetic. 2. DM2 - maintain good glucose control for optimal wound healing 3. HTN 4. CHF - maintain good control to avoid edema, and this is a risk factor for skin infections 5. Sleep apnea Recs: - continue Zosyn 4.5g q8h - continue clindamycin 900mg q8h - continue vancomycin dosed per pharmacy. Appreciate their assistance. Goal trough 15-20. - follow vanc troughs and renal function while on vancomycin/Zosyn combination as it is associated with increased risk of renal toxicity. Thank you for the consult, we will continue to follow. Dr. Morrison taking over tomorrow G. Tara Watkins MD [facility] ([facility]) M: [phone] O: [phone] F: [phone]
[2019-02-18] MEDS: LISINOPRIL 40 MG TAB PO SCH (12:14)
[2019-02-18] MEDS: FAMOTIDINE 20 MG TAB PO SCH (12:15)
[2019-02-18] MEDS: SODIUM CHLORIDE 0.9% 1000 ML 1,000 ML IV SCH (22:42)
[2019-02-19] MEDS: HYDROmorphone 1 MG/1 ML INJ IV PRN ×6 (02:03→18:21)
[2019-02-19] MEDS: hydrALAZINE 20 MG/1 ML INJ IV PRN ×2 (02:15→16:37)
[2019-02-19] MEDS: PIPERACIL/TAZOBACTA 4.5/NS 100 4.5 GM/100 ML VIAL IV SCH ×2 (04:13→11:45)
[2019-02-19 05:38] LABS: Hematocrit 36.9 % (35.5-45.6); Hemoglobin 12.1 gm/dl (11.8-15.2); Mean Corpuscular HGB Conc 33 % (32-34); Mean Corpuscular Volume 89 fl (84-94); Platelet Count 248 K/mm3 (140-440); Red Blood Count 4.14 M/mm3 (3.65-5.03)
[2019-02-19 06:05] LABS: BUN/Creatinine Ratio 20; Blood Urea Nitrogen 8 mg/dL (9-20); Calcium 8.4 mg/dL (8.4-10.2); Hemolysis Index 3
[2019-02-19] MEDS: VANCOMYCIN 2,000 MG in SODIUM CHLORIDE 0.9% 500 ML 500 ML IV SCH ×2 (06:39→14:44)
[2019-02-19] MEDS: FAMOTIDINE 20 MG TAB PO SCH (10:35)
[2019-02-19] MEDS: POTASSIUM CHLORIDE ER 20 MEQ TAB PO SCH ×2 (10:35→15:20)
[2019-02-19] MEDS: LISINOPRIL 40 MG TAB PO SCH (10:35)
--- NOTE | 2019-02-19 12:13 | Progress Note ---
Assessment and Plan Assessment and plan: Cellulitis and abscess in perineal/inguinal area s/p I and D on 02/17 by urology, Dr. Vasquez admitted to Surgical floor Urology following ID following On Clindamycin and Vanco sepsis due to cellulitis started empiric iv Antibiotics HTN Monitor BP Diabetes mellitus type 2 Fingerstick glucose Chronic CHF Lasix COPD Stable Hyperlipidemia Sleep apnea CPAP at night Full code status History Interval history: Feels better s/p I and D abscess perineal/scrotal area Hospitalist Physical - Physical exam Narrative exam: Gen: Not in acute distress,lying in bed, morbidly obese HEENT: Normocephalic, atraumatic Neck: supple, no JVD Heart: S1 and S2 reg, no murmurs, rubs or gallop Lungs: Clear to auscultation, no rhonchi, no wheeze Abd: soft, non tender, non distended, normal BS, Ext: No edema, no clubbing, no cyanosis Neuro: Awake, alert, oriented X 3, no focal neurological signs : swollen tender scrotum, perineal region,dressing over perineum - Constitutional Vitals: Temp Pulse Resp BP Pulse Ox 97.9 F 55 L 22 137/61 100 02/19/19 11:16 02/19/19 11:16 02/19/19 11:41 02/19/19 11:16 02/19/19 11:16 Results - Labs CBC & Chem 7: 02/19/19 05:14 02/19/19 05:14 Labs: Laboratory Last Values WBC 21.5 K/mm3 (4.5-11.0) H 02/19/19 05:14 RBC 4.14 M/mm3 (3.65-5.03) 02/19/19 05:14 Hgb 12.1 gm/dl (11.8-15.2) 02/19/19 05:14 Hct 36.9 % (35.5-45.6) 02/19/19 05:14 MCV 89 fl (84-94) 02/19/19 05:14 MCH 29 pg (28-32) 02/19/19 05:14 MCHC 33 % (32-34) 02/19/19 05:14 RDW 14.0 % (13.2-15.2) 02/19/19 05:14 Plt Count 248 K/mm3 (140-440) 02/19/19 05:14 Add Manual Diff Complete 02/18/19 05:16 Total Counted 100 02/18/19 05:16 Seg Neuts % (Manual) 92.0 % (40.0-70.0) H 02/18/19 05:16 0 % 02/18/19 05:16 5.0 % (13.4-35.0) L 02/18/19 05:16 Reactive Lymphs % (Man) 0 % 02/18/19 05:16 3.0 % (0.0-7.3) 02/18/19 05:16 0 % (0.0-4.3) 02/18/19 05:16 0 % (0.0-1.8) 02/18/19 05:16 0 % 02/18/19 05:16 0 % 02/18/19 05:16 0 % 02/18/19 05:16 0 % 02/18/19 05:16 Nucleated RBC % Not Reportable 02/18/19 05:16 Seg Neutrophils # Man 23.4 K/mm3 (1.8-7.7) H 02/18/19 05:16 Band Neutrophils # 0.0 K/mm3 02/18/19 05:16 1.3 K/mm3 (1.2-5.4) 02/18/19 05:16 Abs React Lymphs (Man) 0.0 K/mm3 02/18/19 05:16 0.8 K/mm3 (0.0-0.8) 02/18/19 05:16 0.0 K/mm3 (0.0-0.4) 02/18/19 05:16 0.0 K/mm3 (0.0-0.1) 02/18/19 05:16 0.0 K/mm3 02/18/19 05:16 0.0 K/mm3 02/18/19 05:16 0.0 K/mm3 02/18/19 05:16 Blast Cells # 0.0 K/mm3 02/18/19 05:16 WBC Morphology Not Reportable 02/18/19 05:16 Hypersegmented Neuts Not Reportable 02/18/19 05:16 Hyposegmented Neuts Not Reportable 02/18/19 05:16 Hypogranular Neuts Not Reportable 02/18/19 05:16 Not Reportable 02/18/19 05:16 Not Reportable 02/18/19 05:16 Not Reportable 02/18/19 05:16 Not Reportable 02/18/19 05:16 Not Reportable 02/18/19 05:16 Not Reportable 02/18/19 05:16 Consistent w auto 02/18/19 05:16 Not Reportable 02/18/19 05:16 Plt Clumps, EDTA Not Reportable 02/18/19 05:16 Rare 02/18/19 05:16 Not Reportable 02/18/19 05:16 Not Reportable 02/18/19 05:16 Plt Morphology Comment Not Reportable 02/18/19 05:16 RBC Morphology Normal 02/18/19 05:16 Dimorphic RBCs Not Reportable 02/18/19 05:16 Not Reportable 02/18/19 05:16 Not Reportable 02/18/19 05:16 Not Reportable 02/18/19 05:16 Not Reportable 02/18/19 05:16 Not Reportable 02/18/19 05:16 Not Reportable 02/18/19 05:16 Not Reportable 02/18/19 05:16 Not Reportable 02/18/19 05:16 Not Reportable 02/18/19 05:16 Not Reportable 02/18/19 05:16 Not Reportable 02/18/19 05:16 Not Reportable 02/18/19 05:16 Not Reportable 02/18/19 05:16 Not Reportable 02/18/19 05:16 Not Reportable 02/18/19 05:16 Not Reportable 02/18/19 05:16 Not Reportable 02/18/19 05:16 Not Reportable 02/18/19 05:16 Not Reportable 02/18/19 05:16 Acanthocytes (Spur) Not Reportable 02/18/19 05:16 Rouleaux Not Reportable 02/18/19 05:16 Not Reportable 02/18/19 05:16 Not Reportable 02/18/19 05:16 Not Reportable 02/18/19 05:16 Not Reportable 02/18/19 05:16 Hem Pathologist Commnt No 02/18/19 05:16 PT 13.8 Sec. (12.2-14.9) 02/16/19 20:56 INR 1.09 (0.87-1.13) 02/16/19 20:56 APTT 26.6 Sec. (24.2-36.6) 02/16/19 20:56 Sodium 141 mmol/L (137-145) 02/19/19 05:14 Potassium 3.3 mmol/L (3.6-5.0) L 02/19/19 05:14 Chloride 100.3 mmol/L (98-107) 02/19/19 05:14 Carbon Dioxide 29 mmol/L (22-30) 02/19/19 05:14 15 mmol/L 02/19/19 05:14 BUN 8 mg/dL (9-20) L 02/19/19 05:14 0.4 mg/dL (0.8-1.5) L 02/19/19 05:14 Estimated GFR > 60 ml/min 02/19/19 05:14 20 % 02/19/19 05:14 Glucose 163 mg/dL (75-100) H 02/19/19 05:14 POC Glucose 147 (70-105) H 02/19/19 11:25 8.3 % (4-6) H 02/19/19 05:14 Lactic Acid 0.80 mmol/L (0.7-2.0) 02/17/19 02:50 Calcium 8.4 mg/dL (8.4-10.2) 02/19/19 05:14 < 0.010 ng/mL (0.00-0.029) 02/16/19 23:12 Vancomycin Trough 14.4 ug/mL (5.0-20.0) 02/19/19 05:14 Active Medications - Current Medications Current Medications: Generic Name Dose Route Start Last Admin Trade Name Freq PRN Reason Stop Dose Admin Acetaminophen 650 mg 02/17/19 10:44 Tylenol PO Q4H PRN Pain MILD(1-3)/Fever >100.5/HUGHES Albuterol 2.5 mg 02/18/19 10:00 Proventil IH Q4HRT PRN Shortness Of Breath Famotidine 20 mg 02/18/19 10:00 02/19/19 10:35 Pepcid PO 20 mg DAILY KENNETH Administration Hydralazine HCl 10 mg 02/17/19 10:48 02/19/19 02:15 Apresoline IV 10 mg Q4HR PRN Administration SBP>170 or DBP>110 Hydromorphone HCl 1 mg 02/17/19 21:10 02/19/19 11:41 Dilaudid IV 1 mg Q3H PRN Administration Severe pain more than 7/10 Piperacillin Sod/Tazobactam Sod 4.5 gm in 100 mls @ 200 mls/hr 02/17/19 12:00 02/19/19 11:45 Zosyn/Ns 4.5gm/100ml IV 200 mls/hr Q8H KENNETH Administration Protocol Clindamycin HCl 900 mg in 50 mls @ 100 mls/hr 02/17/19 18:00 02/19/19 10:35 Cleocin 900 Mg/50 Ml IV 100 mls/hr Q8H KENNETH Administration Protocol Vancomycin HCl 2,000 mg/ 540 mls @ 250 mls/hr 02/18/19 14:00 02/19/19 06:39 Sodium Chloride IV 250 mls/hr Q8HR KENNETH Administration Lisinopril 40 mg 02/18/19 10:00 02/19/19 10:35 Zestril PO 40 mg QDAY KENNETH Administration Morphine Sulfate 2 mg 02/17/19 10:44 02/17/19 18:04 Morphine IV 2 mg Q4H PRN Administration Pain, Moderate (4-6) Ondansetron HCl 4 mg 02/17/19 10:44 Zofran IV Q8H PRN Nausea And Vomiting Potassium Chloride 40 meq 02/19/19 09:00 02/19/19 10:35 K-Dur PO 02/19/19 15:01 40 meq Q6H KENNETH Administration Sodium Chloride 10 ml 02/17/19 22:00 02/19/19 10:44 Sodium Chloride Flush Syringe 10 Ml IV 10 ml BID KENNETH Administration Sodium Chloride 10 ml 02/17/19 10:44 Sodium Chloride Flush Syringe 10 Ml IV PRN PRN LINE FLUSH
--- NOTE | 2019-02-19 14:27 | Progress Note ---
Assessment and Plan Cultures: BCx 02/16 - NGTD SurgCx 02/17 - group B streptococcus Assessment: 43 yo M PMHx HTN, CHF, DM2, sleep apnea admitted with scrotal cellulitis and abscess. 1. Scrotal cellulitis and abscess - s/p I&D by urology. cultures growing Group B Strep. Pt is diabetic and morbidly obese, which are the likely risk factors for the infection. 2. DM2 - maintain good glucose control for optimal wound healing 3. HTN 4. CHF - maintain good control to avoid edema, and this is a risk factor for skin infections 5. Sleep apnea Recs: - Discontinued Zosyn and vancomycin - IV ceftriaxone 2 g daily started - complete 3 days of IV clindamycin - continue wound care for healing with secondary intention - tight glycemic control Jerson Morrison MD, FACP [facility] ([facility]) C: [phone] O: [phone] F: [phone] Subjective Date of service: 02/19/19 Interval history: No fever. Pain in scrotum is much improved. tolerating abx. No rash, no diarrhea. Objective - Exam Narrative Exam: Physical Exam: Constitutional: Alert, cooperative. No acute distress. Morbidly obese Head, Ears, Nose: Normocephalic, atraumatic. External ears, nose normal Eyes: Conjunctivae/corneas clear. No icterus. No ptosis. Neck: Supple, no meningeal signs Oral: no thrush Cardiovascular: S1, S2 normal. Respiratory: Good air entry, clear to auscultation bilaterally GI: Soft, non-tender; bowel sounds normal. No peritoneal signs : scrotal tenderness, posteriorly with wound and packing Musculoskeletal: No pedal edema, no cyanosis. Skin: No rash or abscess Hem/Lymphatic: No palpable cervical or supraclavicular nodes. No lymphangitis Psych: Mood ok. Affect normal Neurological: Awake, alert, oriented. No gross abnormality - Constitutional Vitals: Vital Signs Temp Pulse Resp BP Pulse Ox 97.9 F 55 L 22 137/61 100 02/19/19 11:16 02/19/19 11:16 02/19/19 11:41 02/19/19 11:16 02/19/19 11:16 Temperature -Last 24 Hours Temperature 97.9 F Temperature 98.0 F Temperature 98.2 F Temperature 98.4 F Temperature 98.2 F Temperature 98.2 F - Labs CBC & Chem 7: 02/19/19 05:14 02/19/19 05:14 Labs: Abnormal lab results 02/18/19 02/18/19 02/19/19 Range/Units 16:30 20:55 05:14 WBC (4.5-11.0) K/mm3 Potassium (3.6-5.0) mmol/L BUN (9-20) mg/dL Creatinine (0.8-1.5) mg/dL Glucose (75-100) mg/dL POC Glucose 174 H 154 H (70-105) Hemoglobin A1c 8.3 H (4-6) % 02/19/19 02/19/19 02/19/19 Range/Units 05:14 05:14 07:25 WBC 21.5 H (4.5-11.0) K/mm3 Potassium 3.3 L (3.6-5.0) mmol/L BUN 8 L (9-20) mg/dL Creatinine 0.4 L (0.8-1.5) mg/dL Glucose 163 H (75-100) mg/dL POC Glucose 150 H (70-105) Hemoglobin A1c (4-6) % 02/19/19 Range/Units 11:25 WBC (4.5-11.0) K/mm3 Potassium (3.6-5.0) mmol/L BUN (9-20) mg/dL Creatinine (0.8-1.5) mg/dL Glucose (75-100) mg/dL POC Glucose 147 H (70-105) Hemoglobin A1c (4-6) %
[2019-02-19] MEDS: cefTRIAXone/NS 2 GM/100 ML 2 GM/100 ML BAG IV SCH (16:06)
--- NOTE | 2019-02-19 16:58 | Progress Note ---
Assessment and Plan Assessment and plan: Cellulitis and abscess in perineal/inguinal area s/p I and D on 02/17 by urology, Dr. Vasquez admitted to Surgical floor Urology following ID following Now on Ceftriaxone and Clindamycin. sepsis due to cellulitis started empiric iv Antibiotics Leukocytosis due to sepsis HTN Monitor BP Diabetes mellitus type 2 Fingerstick glucose Chronic CHF Lasix COPD Stable Hyperlipidemia Sleep apnea CPAP at night Full code status History Interval history: Feels better s/p I and D abscess perineal/scrotal area Hospitalist Physical - Physical exam Narrative exam: Gen: Not in acute distress,lying in bed, morbidly obese HEENT: Normocephalic, atraumatic Neck: supple, no JVD Heart: S1 and S2 reg, no murmurs, rubs or gallop Lungs: Clear to auscultation, no rhonchi, no wheeze Abd: soft, non tender, non distended, normal BS, Ext: No edema, no clubbing, no cyanosis Neuro: Awake, alert, oriented X 3, no focal neurological signs : swollen tender scrotum, perineal region,dressing over perineum - Constitutional Vitals: Temp Pulse Resp BP Pulse Ox 98 F 83 20 191/93 100 02/19/19 16:17 02/19/19 16:37 02/19/19 16:17 02/19/19 16:37 02/19/19 16:17 Results - Labs CBC & Chem 7: 02/19/19 05:14 02/19/19 05:14 Labs: Laboratory Last Values WBC 21.5 K/mm3 (4.5-11.0) H 02/19/19 05:14 RBC 4.14 M/mm3 (3.65-5.03) 02/19/19 05:14 Hgb 12.1 gm/dl (11.8-15.2) 02/19/19 05:14 Hct 36.9 % (35.5-45.6) 02/19/19 05:14 MCV 89 fl (84-94) 02/19/19 05:14 MCH 29 pg (28-32) 02/19/19 05:14 MCHC 33 % (32-34) 02/19/19 05:14 RDW 14.0 % (13.2-15.2) 02/19/19 05:14 Plt Count 248 K/mm3 (140-440) 02/19/19 05:14 Add Manual Diff Complete 02/18/19 05:16 Total Counted 100 02/18/19 05:16 Seg Neuts % (Manual) 92.0 % (40.0-70.0) H 02/18/19 05:16 0 % 02/18/19 05:16 5.0 % (13.4-35.0) L 02/18/19 05:16 Reactive Lymphs % (Man) 0 % 02/18/19 05:16 3.0 % (0.0-7.3) 02/18/19 05:16 0 % (0.0-4.3) 02/18/19 05:16 0 % (0.0-1.8) 02/18/19 05:16 0 % 02/18/19 05:16 0 % 02/18/19 05:16 0 % 02/18/19 05:16 0 % 02/18/19 05:16 Nucleated RBC % Not Reportable 02/18/19 05:16 Seg Neutrophils # Man 23.4 K/mm3 (1.8-7.7) H 02/18/19 05:16 Band Neutrophils # 0.0 K/mm3 02/18/19 05:16 1.3 K/mm3 (1.2-5.4) 02/18/19 05:16 Abs React Lymphs (Man) 0.0 K/mm3 02/18/19 05:16 0.8 K/mm3 (0.0-0.8) 02/18/19 05:16 0.0 K/mm3 (0.0-0.4) 02/18/19 05:16 0.0 K/mm3 (0.0-0.1) 02/18/19 05:16 0.0 K/mm3 02/18/19 05:16 0.0 K/mm3 02/18/19 05:16 0.0 K/mm3 02/18/19 05:16 Blast Cells # 0.0 K/mm3 02/18/19 05:16 WBC Morphology Not Reportable 02/18/19 05:16 Hypersegmented Neuts Not Reportable 02/18/19 05:16 Hyposegmented Neuts Not Reportable 02/18/19 05:16 Hypogranular Neuts Not Reportable 02/18/19 05:16 Not Reportable 02/18/19 05:16 Not Reportable 02/18/19 05:16 Not Reportable 02/18/19 05:16 Not Reportable 02/18/19 05:16 Not Reportable 02/18/19 05:16 Not Reportable 02/18/19 05:16 Consistent w auto 02/18/19 05:16 Not Reportable 02/18/19 05:16 Plt Clumps, EDTA Not Reportable 02/18/19 05:16 Rare 02/18/19 05:16 Not Reportable 02/18/19 05:16 Not Reportable 02/18/19 05:16 Plt Morphology Comment Not Reportable 02/18/19 05:16 RBC Morphology Normal 02/18/19 05:16 Dimorphic RBCs Not Reportable 02/18/19 05:16 Not Reportable 02/18/19 05:16 Not Reportable 02/18/19 05:16 Not Reportable 02/18/19 05:16 Not Reportable 02/18/19 05:16 Not Reportable 02/18/19 05:16 Not Reportable 02/18/19 05:16 Not Reportable 02/18/19 05:16 Not Reportable 02/18/19 05:16 Not Reportable 02/18/19 05:16 Not Reportable 02/18/19 05:16 Not Reportable 02/18/19 05:16 Not Reportable 02/18/19 05:16 Not Reportable 02/18/19 05:16 Not Reportable 02/18/19 05:16 Not Reportable 02/18/19 05:16 Not Reportable 02/18/19 05:16 Not Reportable 02/18/19 05:16 Not Reportable 02/18/19 05:16 Not Reportable 02/18/19 05:16 Acanthocytes (Spur) Not Reportable 02/18/19 05:16 Rouleaux Not Reportable 02/18/19 05:16 Not Reportable 02/18/19 05:16 Not Reportable 02/18/19 05:16 Not Reportable 02/18/19 05:16 Not Reportable 02/18/19 05:16 Hem Pathologist Commnt No 02/18/19 05:16 PT 13.8 Sec. (12.2-14.9) 02/16/19 20:56 INR 1.09 (0.87-1.13) 02/16/19 20:56 APTT 26.6 Sec. (24.2-36.6) 02/16/19 20:56 Sodium 141 mmol/L (137-145) 02/19/19 05:14 Potassium 3.3 mmol/L (3.6-5.0) L 02/19/19 05:14 Chloride 100.3 mmol/L (98-107) 02/19/19 05:14 Carbon Dioxide 29 mmol/L (22-30) 02/19/19 05:14 15 mmol/L 02/19/19 05:14 BUN 8 mg/dL (9-20) L 02/19/19 05:14 0.4 mg/dL (0.8-1.5) L 02/19/19 05:14 Estimated GFR > 60 ml/min 02/19/19 05:14 20 % 02/19/19 05:14 Glucose 163 mg/dL (75-100) H 02/19/19 05:14 POC Glucose 191 (70-105) H 02/19/19 16:07 8.3 % (4-6) H 02/19/19 05:14 Lactic Acid 0.80 mmol/L (0.7-2.0) 02/17/19 02:50 Calcium 8.4 mg/dL (8.4-10.2) 02/19/19 05:14 < 0.010 ng/mL (0.00-0.029) 02/16/19 23:12 Vancomycin Trough 14.4 ug/mL (5.0-20.0) 02/19/19 05:14 Active Medications - Current Medications Current Medications: Generic Name Dose Route Start Last Admin Trade Name Freq PRN Reason Stop Dose Admin Acetaminophen 650 mg 02/17/19 10:44 Tylenol PO Q4H PRN Pain MILD(1-3)/Fever >100.5/HUGHES Albuterol 2.5 mg 02/18/19 10:00 Proventil IH Q4HRT PRN Shortness Of Breath Famotidine 20 mg 02/18/19 10:00 02/19/19 10:35 Pepcid PO 20 mg DAILY KENNETH Administration Hydralazine HCl 10 mg 02/17/19 10:48 02/19/19 16:37 Apresoline IV 10 mg Q4HR PRN Administration SBP>170 or DBP>110 Hydromorphone HCl 1 mg 02/17/19 21:10 02/19/19 15:20 Dilaudid IV 1 mg Q3H PRN Administration Severe pain more than 7/10 Clindamycin HCl 900 mg in 50 mls @ 100 mls/hr 02/17/19 18:00 02/19/19 10:35 Cleocin 900 Mg/50 Ml IV 100 mls/hr Q8H KENNETH Administration Protocol Ceftriaxone Sodium 2 gm in 100 mls @ 200 mls/hr 02/19/19 15:00 02/19/19 16:06 Rocephin/Ns 2 Gm/100 Ml IV 200 mls/hr Q24HR KENNETH Administration Protocol Lisinopril 40 mg 02/18/19 10:00 02/19/19 10:35 Zestril PO 40 mg QDAY KENNETH Administration Morphine Sulfate 2 mg 02/17/19 10:44 02/17/19 18:04 Morphine IV 2 mg Q4H PRN Administration Pain, Moderate (4-6) Ondansetron HCl 4 mg 02/17/19 10:44 Zofran IV Q8H PRN Nausea And Vomiting Sodium Chloride 10 ml 02/17/19 22:00 02/19/19 10:44 Sodium Chloride Flush Syringe 10 Ml IV 10 ml BID KENNETH Administration Sodium Chloride 10 ml 02/17/19 10:44 Sodium Chloride Flush Syringe 10 Ml IV PRN PRN LINE FLUSH
[2019-02-19] MEDS ORDERED: FLUTICASONE PROPIONATE NASAL SPRAY 16 GM NS PRN (21:26)
[2019-02-19] MEDS: MORPHINE 2 MG/1 ML INJ IV PRN (21:52)
[2019-02-20] MEDS: hydrALAZINE 20 MG/1 ML INJ IV PRN ×4 (00:23→19:46)
[2019-02-20] MEDS: HYDROmorphone 1 MG/1 ML INJ IV PRN ×6 (01:20→21:03)
[2019-02-20] MEDS: ALBUTEROL 2.5 MG/3 ML NEBU IH PRN ×2 (05:42→21:37)
[2019-02-20 05:49] LABS: Hematocrit 36.2 % (35.5-45.6); Mean Corpuscular HGB Conc 33 % (32-34); Mean Corpuscular Volume 89 fl (84-94); Platelet Count 269 K/mm3 (140-440); Red Blood Count 4.09 M/mm3 (3.65-5.03); Red Cell Distribution Width 13.7 % (13.2-15.2)
[2019-02-20 06:09] LABS: BUN/Creatinine Ratio 10; Blood Urea Nitrogen 4 mg/dL (9-20); Calcium 8.6 mg/dL (8.4-10.2); Hemolysis Index 0
[2019-02-20] MEDS ORDERED: POTASSIUM PHOSPHATE 30 MMOL in SODIUM CHLORIDE 0.9% 500 ML 500 ML IV ONE (07:57)
[2019-02-20] MEDS: LISINOPRIL 40 MG TAB PO SCH (10:33)
[2019-02-20] MEDS: FAMOTIDINE 20 MG TAB PO SCH (10:33)
[2019-02-20] MEDS ORDERED: SODIUM CHLORIDE 0.9% 1000 ML 1,000 ML ONE (10:44)
[2019-02-20] MEDS: cefTRIAXone/NS 2 GM/100 ML 2 GM/100 ML BAG IV SCH (10:49)
[2019-02-20] MEDS: MORPHINE 2 MG/1 ML INJ IV PRN (11:30)
--- NOTE | 2019-02-20 12:05 | Progress Note ---
Assessment and Plan Assessment and plan: Cellulitis and abscess in perineal/inguinal area s/p I and D on 02/17 by urology, Dr. Vasquez admitted to Surgical floor Urology following ID following Now on Ceftriaxone and Clindamycin. sepsis due to cellulitis started empiric iv Antibiotics Leukocytosis due to sepsis HTN Monitor BP Diabetes mellitus type 2 Fingerstick glucose Chronic CHF Lasix COPD Stable Hyperlipidemia Sleep apnea CPAP at night Full code status History Interval history: Feels better s/p I and D abscess perineal/scrotal area Hospitalist Physical - Physical exam Narrative exam: Gen: Not in acute distress,lying in bed, morbidly obese HEENT: Normocephalic, atraumatic Neck: supple, no JVD Heart: S1 and S2 reg, no murmurs, rubs or gallop Lungs: Clear to auscultation, no rhonchi, no wheeze Abd: soft, non tender, non distended, normal BS, Ext: No edema, no clubbing, no cyanosis Neuro: Awake, alert, oriented X 3, no focal neurological signs : swollen tender scrotum, perineal region,dressing over perineum - Constitutional Vitals: Temp Pulse Resp BP Pulse Ox 97.5 F L 85 22 177/92 97 02/20/19 03:57 02/20/19 05:45 02/20/19 05:45 02/20/19 03:57 02/20/19 05:47 Results - Labs CBC & Chem 7: 02/21/19 05:43 02/21/19 05:43 Labs: Laboratory Last Values WBC 18.3 K/mm3 (4.5-11.0) H 02/20/19 05:34 RBC 4.09 M/mm3 (3.65-5.03) 02/20/19 05:34 Hgb 12.0 gm/dl (11.8-15.2) 02/20/19 05:34 Hct 36.2 % (35.5-45.6) 02/20/19 05:34 MCV 89 fl (84-94) 02/20/19 05:34 MCH 29 pg (28-32) 02/20/19 05:34 MCHC 33 % (32-34) 02/20/19 05:34 RDW 13.7 % (13.2-15.2) 02/20/19 05:34 Plt Count 269 K/mm3 (140-440) 02/20/19 05:34 Add Manual Diff Complete 02/18/19 05:16 Total Counted 100 02/18/19 05:16 Seg Neuts % (Manual) 92.0 % (40.0-70.0) H 02/18/19 05:16 0 % 02/18/19 05:16 5.0 % (13.4-35.0) L 02/18/19 05:16 Reactive Lymphs % (Man) 0 % 02/18/19 05:16 3.0 % (0.0-7.3) 02/18/19 05:16 0 % (0.0-4.3) 02/18/19 05:16 0 % (0.0-1.8) 02/18/19 05:16 0 % 02/18/19 05:16 0 % 02/18/19 05:16 0 % 02/18/19 05:16 0 % 02/18/19 05:16 Nucleated RBC % Not Reportable 02/18/19 05:16 Seg Neutrophils # Man 23.4 K/mm3 (1.8-7.7) H 02/18/19 05:16 Band Neutrophils # 0.0 K/mm3 02/18/19 05:16 1.3 K/mm3 (1.2-5.4) 02/18/19 05:16 Abs React Lymphs (Man) 0.0 K/mm3 02/18/19 05:16 0.8 K/mm3 (0.0-0.8) 02/18/19 05:16 0.0 K/mm3 (0.0-0.4) 02/18/19 05:16 0.0 K/mm3 (0.0-0.1) 02/18/19 05:16 0.0 K/mm3 02/18/19 05:16 0.0 K/mm3 02/18/19 05:16 0.0 K/mm3 02/18/19 05:16 Blast Cells # 0.0 K/mm3 02/18/19 05:16 WBC Morphology Not Reportable 02/18/19 05:16 Hypersegmented Neuts Not Reportable 02/18/19 05:16 Hyposegmented Neuts Not Reportable 02/18/19 05:16 Hypogranular Neuts Not Reportable 02/18/19 05:16 Not Reportable 02/18/19 05:16 Not Reportable 02/18/19 05:16 Not Reportable 02/18/19 05:16 Not Reportable 02/18/19 05:16 Not Reportable 02/18/19 05:16 Not Reportable 02/18/19 05:16 Consistent w auto 02/18/19 05:16 Not Reportable 02/18/19 05:16 Plt Clumps, EDTA Not Reportable 02/18/19 05:16 Rare 02/18/19 05:16 Not Reportable 02/18/19 05:16 Not Reportable 02/18/19 05:16 Plt Morphology Comment Not Reportable 02/18/19 05:16 RBC Morphology Normal 02/18/19 05:16 Dimorphic RBCs Not Reportable 02/18/19 05:16 Not Reportable 02/18/19 05:16 Not Reportable 02/18/19 05:16 Not Reportable 02/18/19 05:16 Not Reportable 02/18/19 05:16 Not Reportable 02/18/19 05:16 Not Reportable 02/18/19 05:16 Not Reportable 02/18/19 05:16 Not Reportable 02/18/19 05:16 Not Reportable 02/18/19 05:16 Not Reportable 02/18/19 05:16 Not Reportable 02/18/19 05:16 Not Reportable 02/18/19 05:16 Not Reportable 02/18/19 05:16 Not Reportable 02/18/19 05:16 Not Reportable 02/18/19 05:16 Not Reportable 02/18/19 05:16 Not Reportable 02/18/19 05:16 Not Reportable 02/18/19 05:16 Not Reportable 02/18/19 05:16 Acanthocytes (Spur) Not Reportable 02/18/19 05:16 Rouleaux Not Reportable 02/18/19 05:16 Not Reportable 02/18/19 05:16 Not Reportable 02/18/19 05:16 Not Reportable 02/18/19 05:16 Not Reportable 02/18/19 05:16 Hem Pathologist Commnt No 02/18/19 05:16 PT 13.8 Sec. (12.2-14.9) 02/16/19 20:56 INR 1.09 (0.87-1.13) 02/16/19 20:56 APTT 26.6 Sec. (24.2-36.6) 02/16/19 20:56 Sodium 141 mmol/L (137-145) 02/20/19 05:34 Potassium 3.3 mmol/L (3.6-5.0) L 02/20/19 05:34 Chloride 98.9 mmol/L (98-107) 02/20/19 05:34 Carbon Dioxide 33 mmol/L (22-30) H 02/20/19 05:34 12 mmol/L 02/20/19 05:34 BUN 4 mg/dL (9-20) L 02/20/19 05:34 0.4 mg/dL (0.8-1.5) L 02/20/19 05:34 Estimated GFR > 60 ml/min 02/20/19 05:34 10 % 02/20/19 05:34 Glucose 158 mg/dL (75-100) H 02/20/19 05:34 POC Glucose 175 (70-105) H 02/19/19 20:53 8.3 % (4-6) H 02/19/19 05:14 Lactic Acid 0.80 mmol/L (0.7-2.0) 02/17/19 02:50 Calcium 8.6 mg/dL (8.4-10.2) 02/20/19 05:34 Phosphorus 2.10 mg/dL (2.5-4.5) L 02/20/19 05:34 Magnesium 2.00 mg/dL (1.7-2.3) 02/20/19 05:34 < 0.010 ng/mL (0.00-0.029) 02/16/19 23:12 Vancomycin Trough 14.4 ug/mL (5.0-20.0) 02/19/19 05:14 Active Medications - Current Medications Current Medications: Generic Name Dose Route Start Last Admin Trade Name Freq PRN Reason Stop Dose Admin Acetaminophen 650 mg 02/17/19 10:44 Tylenol PO Q4H PRN Pain MILD(1-3)/Fever >100.5/HUGHES Albuterol 2.5 mg 02/18/19 10:00 02/20/19 05:42 Proventil IH 2.5 mg Q4HRT PRN Administration Shortness Of Breath Famotidine 20 mg 02/18/19 10:00 02/20/19 10:33 Pepcid PO 20 mg DAILY KENNETH Administration Fluticasone Propionate 100 mcg 02/19/19 21:26 Flonase NS QDAY PRN Nasal Congestion Hydralazine HCl 10 mg 02/17/19 10:48 02/20/19 08:04 Apresoline IV 10 mg Q4HR PRN Administration SBP>170 or DBP>110 Hydromorphone HCl 1 mg 02/17/19 21:10 02/20/19 08:04 Dilaudid IV 1 mg Q3H PRN Administration Severe pain more than 7/10 Clindamycin HCl 900 mg in 50 mls @ 100 mls/hr 02/17/19 18:00 02/20/19 11:35 Cleocin 900 Mg/50 Ml IV 100 mls/hr Q8H KENNTEH Administration Protocol Ceftriaxone Sodium 2 gm in 100 mls @ 200 mls/hr 02/19/19 15:00 02/20/19 10:49 Rocephin/Ns 2 Gm/100 Ml IV 200 mls/hr Q24HR KENNETH Administration Protocol Potassium Phosphate 30 mmol/ 510 mls @ 85 mls/hr 02/20/19 07:57 02/20/19 08:48 Sodium Chloride IV 02/20/19 13:56 85 mls/hr ONCE ONE Administration Lisinopril 40 mg 02/18/19 10:00 02/20/19 10:33 Zestril PO 40 mg QDAY KENNETH Administration Morphine Sulfate 2 mg 02/17/19 10:44 02/20/19 11:30 Morphine IV 2 mg Q4H PRN Administration Pain, Moderate (4-6) Ondansetron HCl 4 mg 02/17/19 10:44 Zofran IV Q8H PRN Nausea And Vomiting Sodium Chloride 10 ml 02/17/19 22:00 02/19/19 10:44 Sodium Chloride Flush Syringe 10 Ml IV 10 ml BID KENNETH Administration Sodium Chloride 10 ml 02/17/19 10:44 Sodium Chloride Flush Syringe 10 Ml IV PRN PRN LINE FLUSH
--- NOTE | 2019-02-20 14:09 | Progress Note ---
Assessment and Plan Cultures: BCx 02/16 - NGTD SurgCx 02/17 - group B streptococcus Assessment: 43 yo M PMHx HTN, CHF, DM2, sleep apnea admitted with scrotal cellulitis and abscess. 1. Scrotal cellulitis and abscess - s/p I&D by urology. cultures growing Group B Strep. Pt is diabetic and morbidly obese, which are the likely risk factors for the infection. 2. DM2 - maintain good glucose control for optimal wound healing 3. HTN 4. CHF - maintain good control to avoid edema, and this is a risk factor for skin infections 5. Sleep apnea Recs: - continue IV ceftriaxone 2 g daily - completed 3 days of IV clindamycin - continue wound care for healing with secondary intention - tight glycemic control - upon discharge, would switch to PO abx. Jerson Morrison MD, FACP [facility] ([facility]) C: [phone] O: [phone] F: [phone] Subjective Date of service: 02/20/19 Interval history: Feeling better. no fever. Pain present, dressing +. no rash, no diarrhea. Objective - Exam Narrative Exam: Physical Exam: Constitutional: Alert, cooperative. No acute distress. Morbidly obese Head, Ears, Nose: Normocephalic, atraumatic. External ears, nose normal Eyes: Conjunctivae/corneas clear. No icterus. No ptosis. Neck: Supple, no meningeal signs Oral: no thrush Cardiovascular: S1, S2 normal. Respiratory: Good air entry, clear to auscultation bilaterally GI: Soft, non-tender; bowel sounds normal. No peritoneal signs : scrotal tenderness, posteriorly with wound and packing + Musculoskeletal: No pedal edema, no cyanosis. Skin: No rash or abscess Hem/Lymphatic: No palpable cervical or supraclavicular nodes. No lymphangitis Psych: Mood ok. Affect normal Neurological: Awake, alert, oriented. No gross abnormality - Constitutional Vitals: Vital Signs Temp Pulse Resp BP Pulse Ox 97.5 F L 85 22 177/92 97 02/20/19 03:57 02/20/19 05:45 02/20/19 05:45 02/20/19 03:57 02/20/19 05:47 Temperature -Last 24 Hours Temperature 97.5 F Temperature 98.6 F Temperature 98.9 F Temperature 98 F - Labs CBC & Chem 7: 02/20/19 05:34 02/20/19 05:34 Labs: Abnormal lab results 02/19/19 02/19/19 02/20/19 Range/Units 16:07 20:53 05:34 WBC 18.3 H (4.5-11.0) K/mm3 Potassium (3.6-5.0) mmol/L Carbon Dioxide (22-30) mmol/L BUN (9-20) mg/dL Creatinine (0.8-1.5) mg/dL Glucose (75-100) mg/dL POC Glucose 191 H 175 H (70-105) Phosphorus (2.5-4.5) mg/dL 02/20/19 Range/Units 05:34 WBC (4.5-11.0) K/mm3 Potassium 3.3 L (3.6-5.0) mmol/L Carbon Dioxide 33 H (22-30) mmol/L BUN 4 L (9-20) mg/dL Creatinine 0.4 L (0.8-1.5) mg/dL Glucose 158 H (75-100) mg/dL POC Glucose (70-105) Phosphorus 2.10 L (2.5-4.5) mg/dL
[2019-02-21] MEDS: HYDROmorphone 1 MG/1 ML INJ IV PRN ×5 (00:36→12:27)
[2019-02-21 06:16] LABS: Hematocrit 37.3 % (35.5-45.6); Hemoglobin 12.3 gm/dl (11.8-15.2); Mean Corpuscular HGB Conc 33 % (32-34); Mean Corpuscular Volume 90 fl (84-94); Platelet Count 280 K/mm3 (140-440); Red Blood Count 4.16 M/mm3 (3.65-5.03); Red Cell Distribution Width 13.8 % (13.2-15.2)
[2019-02-21 06:31] LABS: BUN/Creatinine Ratio 13; Blood Urea Nitrogen 5 mg/dL (9-20); Calcium 8.7 mg/dL (8.4-10.2); Hemolysis Index 14
--- NOTE | 2019-02-21 08:28 | Progress Note ---
Assessment and Plan packed wound no tenderness no erythema strep plan per ID /med home on antibiotics needs wound alf health care Subjective Date of service: 02/21/19 Principal diagnosis: l groin abcess Objective - Constitutional Vitals: Vital Signs - 12hr 02/20/19 02/20/19 02/20/19 20:48 20:50 21:03 Temperature Pulse Rate Pulse Rate [ Anterior Bilateral] Pulse Rate [ Anterior] Respiratory 19 17 Rate Respiratory Rate [Anterior Bilateral] Respiratory Rate [Anterior] Respiratory 17 Rate [HEADACHE] Blood Pressure O2 Sat by Pulse 98 Oximetry 02/20/19 02/20/19 02/20/19 21:41 21:42 23:57 Temperature 98.8 F Pulse Rate 90 Pulse Rate [ 96 H Anterior Bilateral] Pulse Rate [ 98 H Anterior] Respiratory 20 Rate Respiratory 16 Rate [Anterior Bilateral] Respiratory 18 Rate [Anterior] Respiratory Rate [HEADACHE] Blood Pressure 166/80 O2 Sat by Pulse 99 94 Oximetry 02/21/19 04:51 Temperature 98.0 F Pulse Rate 83 Pulse Rate [ Anterior Bilateral] Pulse Rate [ Anterior] Respiratory 20 Rate Respiratory Rate [Anterior Bilateral] Respiratory Rate [Anterior] Respiratory Rate [HEADACHE] Blood Pressure 153/71 O2 Sat by Pulse 97 Oximetry General appearance: Present: no acute distress - Respiratory Respiratory effort: normal Extremities: no ischemia - Gastrointestinal General gastrointestinal: Present: soft, non-tender - Labs CBC & Chem 7: 02/21/19 05:43 02/21/19 05:43 Labs: Abnormal lab results 02/20/19 02/20/19 02/20/19 Range/Units 08:10 11:09 16:25 WBC (4.5-11.0) K/mm3 Potassium (3.6-5.0) mmol/L Carbon Dioxide (22-30) mmol/L BUN (9-20) mg/dL Creatinine (0.8-1.5) mg/dL Glucose (75-100) mg/dL POC Glucose 153 H 141 H 196 H (70-105) 02/20/19 02/21/19 02/21/19 Range/Units 20:34 05:43 05:43 WBC 14.1 H (4.5-11.0) K/mm3 Potassium 3.4 L (3.6-5.0) mmol/L Carbon Dioxide 32 H (22-30) mmol/L BUN 5 L (9-20) mg/dL Creatinine 0.4 L (0.8-1.5) mg/dL Glucose 140 H (75-100) mg/dL POC Glucose 138 H (70-105) 02/21/19 Range/Units 07:25 WBC (4.5-11.0) K/mm3 Potassium (3.6-5.0) mmol/L Carbon Dioxide (22-30) mmol/L BUN (9-20) mg/dL Creatinine (0.8-1.5) mg/dL Glucose (75-100) mg/dL POC Glucose 137 H (70-105) Medications & Allergies - Medications Allergies/Adverse Reactions: Allergies cephalexin [From Keflex] Allergy (Verified 01/19/18 14:44) Unknown Penicillins Allergy (Verified 01/19/18 14:44) Unknown Home Medications: Home Medications Medication Instructions Recorded Confirmed Last Taken Type Aspirin [Aspirin EC] 81 mg PO DAILY 04/23/17 02/17/19 04/23/17 History Furosemide [Lasix TAB] 40 mg PO QDAY 04/23/17 02/17/19 04/23/17 History Lisinopril [Zestril TAB] 40 mg PO QDAY #30 tablet 05/05/17 02/17/19 Unknown Rx Albuterol Sulfate [Proair 90 mcg IH Q4HR PRN #2 [email or web address] 01/19/18 02/17/19 Unknown Rx Respiclick] Carvedilol [Coreg] 25 mg PO DAILY 02/17/19 02/17/19 Unknown History Famotidine [Pepcid] 20 mg PO DAILY 02/17/19 02/17/19 Unknown History Insulin Aspart [NovoLOG 100 See Protocol SUB-Q ACHS 02/19/19 02/19/19 Unknown History UNITS/ML VIAL] Simvastatin 40 mg PO QHS 02/19/19 02/19/19 Unknown History glipiZIDE [Glucotrol] 5 mg PO QDAY 02/19/19 02/19/19 Unknown History Active Medications: Generic Name Dose Route Start Last Admin Trade Name Freq PRN Reason Stop Dose Admin Acetaminophen 650 mg 02/17/19 10:44 Tylenol PO Q4H PRN Pain MILD(1-3)/Fever >100.5/HUGHES Albuterol 2.5 mg 02/18/19 10:00 02/20/19 21:37 Proventil IH 2.5 mg Q4HRT PRN Administration Shortness Of Breath Famotidine 20 mg 02/18/19 10:00 02/20/19 10:33 Pepcid PO 20 mg DAILY KENNETH Administration Fluticasone Propionate 100 mcg 02/19/19 21:26 Flonase NS QDAY PRN Nasal Congestion Hydralazine HCl 10 mg 02/17/19 10:48 02/20/19 19:46 Apresoline IV 10 mg Q4HR PRN Administration SBP>170 or DBP>110 Hydromorphone HCl 1 mg 02/17/19 21:10 02/21/19 06:36 Dilaudid IV 1 mg Q3H PRN Administration Severe pain more than 7/10 Ceftriaxone Sodium 2 gm in 100 mls @ 200 mls/hr 02/19/19 15:00 02/20/19 10:49 Rocephin/Ns 2 Gm/100 Ml IV 200 mls/hr Q24HR KENNETH Administration Protocol Lisinopril 40 mg 02/18/19 10:00 02/20/19 10:33 Zestril PO 40 mg QDAY KENNETH Administration Morphine Sulfate 2 mg 02/17/19 10:44 02/20/19 11:30 Morphine IV 2 mg Q4H PRN Administration Pain, Moderate (4-6) Ondansetron HCl 4 mg 02/17/19 10:44 Zofran IV Q8H PRN Nausea And Vomiting Potassium Chloride 40 meq 02/21/19 08:00 K-Dur PO 02/21/19 12:01 Q4H KENNETH Sodium Chloride 10 ml 02/17/19 22:00 02/20/19 22:09 Sodium Chloride Flush Syringe 10 Ml IV 10 ml BID KENNETH Administration Sodium Chloride 10 ml 02/17/19 10:44 Sodium Chloride Flush Syringe 10 Ml IV PRN PRN LINE FLUSH
[2019-02-21] MEDS: FAMOTIDINE 20 MG TAB PO SCH (09:24)
[2019-02-21] MEDS: LISINOPRIL 40 MG TAB PO SCH (09:24)
[2019-02-21] MEDS: POTASSIUM CHLORIDE ER 20 MEQ TAB PO SCH ×2 (09:24→12:26)
[2019-02-21] MEDS: cefTRIAXone/NS 2 GM/100 ML 2 GM/100 ML BAG IV SCH (09:30)
--- NOTE | 2019-02-21 12:36 | Progress Note ---
Assessment and Plan Cultures: BCx 02/16 - NGTD SurgCx 02/17 - group B streptococcus Assessment: 43 yo M PMHx HTN, CHF, DM2, sleep apnea admitted with scrotal cellulitis and abscess. 1. Scrotal cellulitis and abscess - s/p I&D by urology. cultures growing Group B Strep. Pt is diabetic and morbidly obese, which are the likely risk factors for the infection. 2. DM2 - maintain good glucose control for optimal wound healing. 3. HTN 4. CHF - maintain good control to avoid edema, and this is a risk factor for skin infections 5. Sleep apnea Recs: - OK to discharge from ID standpoint on PO Keflex 750 mg QID x 7 days (patient has been tolerating Cephalosporins well here) - continue wound care for healing with secondary intention - needs to continue tight glycemic control - follow up in ID clinic Jerson Morrison MD, FACP [facility] ([facility]) C: [phone] O: [phone] F: [phone] Subjective Date of service: 02/21/19 Principal diagnosis: l groin abcess Interval history: Patient doing well. No fever. Pain present but controlled with meds. No diarrhea. no vomiting. no rash. Objective - Exam Narrative Exam: Physical Exam: Constitutional: Alert, cooperative. No acute distress. Morbidly obese Head, Ears, Nose: Normocephalic, atraumatic. External ears, nose normal Eyes: Conjunctivae/corneas clear. No icterus. No ptosis. Neck: Supple, no meningeal signs Oral: no thrush Cardiovascular: S1, S2 normal. Respiratory: Good air entry, clear to auscultation bilaterally GI: Soft, non-tender; bowel sounds normal. No peritoneal signs : scrotal swelling, mild tenderness, posteriorly with wound and packing + Musculoskeletal: No pedal edema, no cyanosis. Skin: No rash or abscess Hem/Lymphatic: No palpable cervical or supraclavicular nodes. No lymphangitis Psych: Mood ok. Affect normal Neurological: Awake, alert, oriented. No gross abnormality - Constitutional Vitals: Vital Signs Temp Pulse Resp BP Pulse Ox 98.0 F 83 20 153/71 99 02/21/19 04:51 02/21/19 04:51 02/21/19 04:51 02/21/19 04:51 02/21/19 09:13 Temperature -Last 24 Hours Temperature 98.0 F Temperature 98.8 F Temperature 98.6 F Temperature 98.6 F Temperature 98.8 F - Labs CBC & Chem 7: 02/21/19 05:43 02/21/19 05:43 Labs: Abnormal lab results 02/20/19 02/20/19 02/20/19 Range/Units 08:10 11:09 16:25 WBC (4.5-11.0) K/mm3 Potassium (3.6-5.0) mmol/L Carbon Dioxide (22-30) mmol/L BUN (9-20) mg/dL Creatinine (0.8-1.5) mg/dL Glucose (75-100) mg/dL POC Glucose 153 H 141 H 196 H (70-105) 02/20/19 02/21/19 02/21/19 Range/Units 20:34 05:43 05:43 WBC 14.1 H (4.5-11.0) K/mm3 Potassium 3.4 L (3.6-5.0) mmol/L Carbon Dioxide 32 H (22-30) mmol/L BUN 5 L (9-20) mg/dL Creatinine 0.4 L (0.8-1.5) mg/dL Glucose 140 H (75-100) mg/dL POC Glucose 138 H (70-105) 02/21/19 02/21/19 Range/Units 07:25 11:04 WBC (4.5-11.0) K/mm3 Potassium (3.6-5.0) mmol/L Carbon Dioxide (22-30) mmol/L BUN (9-20) mg/dL Creatinine (0.8-1.5) mg/dL Glucose (75-100) mg/dL POC Glucose 137 H 175 H (70-105)
--- NOTE | 2019-02-21 13:47 | Discharge Summary ---
Providers - Providers Date of Admission: 02/17/19 10:44 Date of discharge: 02/21/19 Attending physician: OSWALD BOGGS 02/17/19 01:31 Consult to Physician [CONS] Stat Comment: Dr. Shah spoke with Dr. Charlton @ [phone] Consulting Provider: ANNELIESE CHARLTON Physician Instructions: Reason For Exam: Ana Laura's Gangrene 02/17/19 10:59 Consult to Physician [CONS] Routine Comment: Consulting Provider: MIMI MCKEON Physician Instructions: Reason For Exam: Sepsis, cellulitis scrotal, perineum 02/18/19 09:15 Consult to Wound/ET Nurse [CONS] Urgent Reason For Exam: wound eval - today Primary care physician: NIGEL MORRELL Hospitalization Condition: Fair Hospital course: Patient is 43 yo with hypertension, CHF, COPD, sleep apnea on CPAP, diabetes,morbid obesity. He presented with 2 days of pain swelling redness scrotal area. He was seen and evaluated in ED and diagnosed with cellulitis scrotal and perineal region. ED Physician discussed with Urology. he was admitted. He was evaluated by Urology and ID Physician. He had I and D on 02/17/19. he improved post op and discharge was being planned. however his BP was very high on 02/11 at 195/95. he stated he wants to go home. I advised him to stay but he refused and signed out against medical advice on 02/21/19. Cellulitis and abscess in perineal/inguinal area s/p I and D on 02/17 by urology, Dr. Vasquez admitted to Surgical floor Urology following ID following Treated with Ceftriaxone and Clindamycin. Sepsis due to cellulitis Started empiric iv Antibiotics Leukocytosis due to sepsis HTN Monitor BP Diabetes mellitus type 2 Fingerstick glucose Chronic CHF Lasix COPD Stable Hyperlipidemia Sleep apnea CPAP at night Total time spent on discharge , 42 mins Disposition: [id number] LEFT AGAINST MED ADVICE - Discharge Diagnoses (1) Acute respiratory failure Status: Acute (2) Chronic CHF (congestive heart failure) Status: Acute (3) Sepsis Status: Acute (4) PARUL (generalized anxiety disorder) Status: Chronic (5) HTN (hypertension) Status: Chronic Qualifiers: Hypertension type: essential hypertension Qualified Code(s): I10 - Essential (primary) hypertension (6) IDDM (insulin dependent diabetes mellitus) Status: Chronic (7) ARMANDO (obstructive sleep apnea) Status: Chronic (8) Cellulitis of scrotum Status: Acute (9) Morbid obesity Status: Acute (10) COPD exacerbation Status: Acute Core Measure Documentation - Palliative Care Palliative Care/ Comfort Measures: Not Applicable - Core Measures Any of the following diagnoses?: heart failure - Heart Failure Discharge Requirements GEORGES/ARB for LVSD if EF <40%: Yes Beta eulogio at discharge: Yes Exam - Constitutional Vitals: Temp Pulse Resp BP Pulse Ox 98.0 F 83 20 153/71 99 02/21/19 04:51 02/21/19 04:51 02/21/19 04:51 02/21/19 04:51 02/21/19 09:13 Plan Activity: advance as tolerated Diet: low fat, low cholesterol, low salt, diabetic Wound: per wound nurse instructions Special Instructions: home health RN Plan of Treatment: 1.Follow up with PCP in 1 week. 2.Follow up with Dr. Morrison in 1 week 3.Follow up with Dr. Vasquez, urology in 1 week. 4.Home [facility] for wound [facility] Follow up with: NIGEL MORRELL MD [Primary Care Provider] - 7 Days Prescriptions: Cephalexin [Keflex] 750 mg PO QID 7 Days capsule oxyCODONE /ACETAMINOPHEN [Percocet 5/325] 1 tab PO Q6HR PRN #12 tablet PRN Reason: Pain
[2019-02-21] MEDS: hydrALAZINE 20 MG/1 ML INJ IV PRN (15:30)
--- NOTE | 2019-02-21 16:24 | Progress Note ---
Hospitalist Physical - Constitutional Vitals: Temp Pulse Resp BP Pulse Ox 97.9 F 85 24 210/101 95 02/21/19 16:00 02/21/19 16:00 02/21/19 16:00 02/21/19 16:00 02/21/19 16:00 General appearance: Present: no acute distress Results - Labs CBC & Chem 7: 02/21/19 05:43 02/21/19 05:43 Labs: Laboratory Last Values WBC 14.1 K/mm3 (4.5-11.0) H 02/21/19 05:43 RBC 4.16 M/mm3 (3.65-5.03) 02/21/19 05:43 Hgb 12.3 gm/dl (11.8-15.2) 02/21/19 05:43 Hct 37.3 % (35.5-45.6) 02/21/19 05:43 MCV 90 fl (84-94) 02/21/19 05:43 MCH 30 pg (28-32) 02/21/19 05:43 MCHC 33 % (32-34) 02/21/19 05:43 RDW 13.8 % (13.2-15.2) 02/21/19 05:43 Plt Count 280 K/mm3 (140-440) 02/21/19 05:43 Add Manual Diff Complete 02/18/19 05:16 Total Counted 100 02/18/19 05:16 Seg Neuts % (Manual) 92.0 % (40.0-70.0) H 02/18/19 05:16 0 % 02/18/19 05:16 5.0 % (13.4-35.0) L 02/18/19 05:16 Reactive Lymphs % (Man) 0 % 02/18/19 05:16 3.0 % (0.0-7.3) 02/18/19 05:16 0 % (0.0-4.3) 02/18/19 05:16 0 % (0.0-1.8) 02/18/19 05:16 0 % 02/18/19 05:16 0 % 02/18/19 05:16 0 % 02/18/19 05:16 0 % 02/18/19 05:16 Nucleated RBC % Not Reportable 02/18/19 05:16 Seg Neutrophils # Man 23.4 K/mm3 (1.8-7.7) H 02/18/19 05:16 Band Neutrophils # 0.0 K/mm3 02/18/19 05:16 1.3 K/mm3 (1.2-5.4) 02/18/19 05:16 Abs React Lymphs (Man) 0.0 K/mm3 02/18/19 05:16 0.8 K/mm3 (0.0-0.8) 02/18/19 05:16 0.0 K/mm3 (0.0-0.4) 02/18/19 05:16 0.0 K/mm3 (0.0-0.1) 02/18/19 05:16 0.0 K/mm3 02/18/19 05:16 0.0 K/mm3 02/18/19 05:16 0.0 K/mm3 02/18/19 05:16 Blast Cells # 0.0 K/mm3 02/18/19 05:16 WBC Morphology Not Reportable 02/18/19 05:16 Hypersegmented Neuts Not Reportable 02/18/19 05:16 Hyposegmented Neuts Not Reportable 02/18/19 05:16 Hypogranular Neuts Not Reportable 02/18/19 05:16 Not Reportable 02/18/19 05:16 Not Reportable 02/18/19 05:16 Not Reportable 02/18/19 05:16 Not Reportable 02/18/19 05:16 Not Reportable 02/18/19 05:16 Not Reportable 02/18/19 05:16 Consistent w auto 02/18/19 05:16 Not Reportable 02/18/19 05:16 Plt Clumps, EDTA Not Reportable 02/18/19 05:16 Rare 02/18/19 05:16 Not Reportable 02/18/19 05:16 Not Reportable 02/18/19 05:16 Plt Morphology Comment Not Reportable 02/18/19 05:16 RBC Morphology Normal 02/18/19 05:16 Dimorphic RBCs Not Reportable 02/18/19 05:16 Not Reportable 02/18/19 05:16 Not Reportable 02/18/19 05:16 Not Reportable 02/18/19 05:16 Not Reportable 02/18/19 05:16 Not Reportable 02/18/19 05:16 Not Reportable 02/18/19 05:16 Not Reportable 02/18/19 05:16 Not Reportable 02/18/19 05:16 Not Reportable 02/18/19 05:16 Not Reportable 02/18/19 05:16 Not Reportable 02/18/19 05:16 Not Reportable 02/18/19 05:16 Not Reportable 02/18/19 05:16 Not Reportable 02/18/19 05:16 Not Reportable 02/18/19 05:16 Not Reportable 02/18/19 05:16 Not Reportable 02/18/19 05:16 Not Reportable 02/18/19 05:16 Not Reportable 02/18/19 05:16 Acanthocytes (Spur) Not Reportable 02/18/19 05:16 Rouleaux Not Reportable 02/18/19 05:16 Not Reportable 02/18/19 05:16 Not Reportable 02/18/19 05:16 Not Reportable 02/18/19 05:16 Not Reportable 02/18/19 05:16 Hem Pathologist Commnt No 02/18/19 05:16 PT 13.8 Sec. (12.2-14.9) 02/16/19 20:56 INR 1.09 (0.87-1.13) 02/16/19 20:56 APTT 26.6 Sec. (24.2-36.6) 02/16/19 20:56 Sodium 144 mmol/L (137-145) 02/21/19 05:43 Potassium 3.4 mmol/L (3.6-5.0) L 02/21/19 05:43 Chloride 100.3 mmol/L (98-107) 02/21/19 05:43 Carbon Dioxide 32 mmol/L (22-30) H 02/21/19 05:43 15 mmol/L 02/21/19 05:43 BUN 5 mg/dL (9-20) L 02/21/19 05:43 0.4 mg/dL (0.8-1.5) L 02/21/19 05:43 Estimated GFR > 60 ml/min 02/21/19 05:43 13 % 02/21/19 05:43 Glucose 140 mg/dL (75-100) H 02/21/19 05:43 POC Glucose 175 (70-105) H 02/21/19 11:04 8.3 % (4-6) H 02/19/19 05:14 Lactic Acid 0.80 mmol/L (0.7-2.0) 02/17/19 02:50 Calcium 8.7 mg/dL (8.4-10.2) 02/21/19 05:43 Phosphorus 2.90 mg/dL (2.5-4.5) D 02/21/19 05:43 Magnesium 2.00 mg/dL (1.7-2.3) 02/20/19 05:34 < 0.010 ng/mL (0.00-0.029) 02/16/19 23:12 Vancomycin Trough 14.4 ug/mL (5.0-20.0) 02/19/19 05:14 Active Medications - Current Medications Current Medications: Generic Name Dose Route Start Last Admin Trade Name Freq PRN Reason Stop Dose Admin Acetaminophen 650 mg 02/17/19 10:44 Tylenol PO Q4H PRN Pain MILD(1-3)/Fever >100.5/HUGHES Albuterol 2.5 mg 02/18/19 10:00 02/20/19 21:37 Proventil IH 2.5 mg Q4HRT PRN Administration Shortness Of Breath Amlodipine Besylate 5 mg 02/21/19 17:00 Norvasc PO QDAY KENNETH Famotidine 20 mg 02/18/19 10:00 02/21/19 09:24 Pepcid PO 20 mg DAILY KENNETH Administration Fluticasone Propionate 100 mcg 02/19/19 21:26 Flonase NS QDAY PRN Nasal Congestion Glipizide 5 mg 02/21/19 17:00 Glucotrol PO QDAY KENNETH Hydralazine HCl 10 mg 02/17/19 10:48 02/20/19 19:46 Apresoline IV 10 mg Q4HR PRN Administration SBP>170 or DBP>110 Hydralazine HCl 20 mg 02/21/19 17:00 Apresoline IV 02/21/19 17:01 ONCE ONE Hydralazine HCl 50 mg 02/21/19 17:00 Apresoline PO Q8HR KENNETH Hydromorphone HCl 1 mg 02/17/19 21:10 02/21/19 12:27 Dilaudid IV 1 mg Q3H PRN Administration Severe pain more than 7/10 Ceftriaxone Sodium 2 gm in 100 mls @ 200 mls/hr 02/19/19 15:00 02/21/19 09:30 Rocephin/Ns 2 Gm/100 Ml IV 200 mls/hr Q24HR KENNETH Administration Protocol Lisinopril 40 mg 02/18/19 10:00 02/21/19 09:24 Zestril PO 40 mg QDAY KENNETH Administration Miscellaneous Medication 40 mg 02/21/19 22:00 Simvastatin [Simvastatin] PO QHS KENNETH Morphine Sulfate 2 mg 02/17/19 10:44 02/20/19 11:30 Morphine IV 2 mg Q4H PRN Administration Pain, Moderate (4-6) Ondansetron HCl 4 mg 02/17/19 10:44 Zofran IV Q8H PRN Nausea And Vomiting Sodium Chloride 10 ml 02/17/19 22:00 02/20/19 22:09 Sodium Chloride Flush Syringe 10 Ml IV 10 ml BID KENNETH Administration Sodium Chloride 10 ml 02/17/19 10:44 Sodium Chloride Flush Syringe 10 Ml IV PRN PRN LINE FLUSH
[2019-02-21] MEDS ORDERED: amLODIPine 5 MG TAB PO SCH (17:00)
[2019-02-21] MEDS ORDERED: hydrALAZINE 20 MG/1 ML INJ IV ONE (17:00)
[2019-02-21] MEDS ORDERED: glipiZIDE 5 MG TAB PO SCH (17:00)
[2019-02-21 17:16] VITALS: BP 195/95
--- NOTE | 2019-02-21 17:20 | Event Note ---
Date: 02/21/19 Patient left against medical advice.
[2019-02-21] MEDS ORDERED: hydrALAZINE 25 MG TAB PO SCH (17:30)
[2019-02-21] MEDS ORDERED: PRAVASTATIN 80 MG TAB PO SCH (22:00)
[2019-02-21] MEDS ORDERED: NON-FORMULARY EACH (Simvastatin [Simvastatin] 40 MG) PO SCH (22:00)
--- NOTE | 2019-03-11 07:46 | Operative Report ---
PREOPERATIVE DIAGNOSIS: Scrotal and perianal abscess. POSTOPERATIVE DIAGNOSIS: Scrotal and perianal abscess. PROCEDURE: Cystoscopy, incision and drainage, debridement of abscess. COMPLICATIONS: None. FINDINGS: ____ towards the scrotum and towards the left lateral ____ no clear malodor, but ____ the lateral aspect. CLINICAL INDICATIONS: The patient counseled on RCBA, antibiotics, SCDs. The patient was seen by my partner, . ____ was evaluated and scheduled for the procedure. I counseled before the procedure on risks, benefits and complications. DESCRIPTION OF PROCEDURE: Transferred to OR suite in supine position, anesthesia, dorsal lithotomy, prepped and draped in standard fashion. A flexible cystoscope was passed through the ____ ____ obstruction. Upon entering the bladder, some debris ____ withdrawn. Jaime catheter placed. Balloon ____ drained. At this point, we began our inspection ____ scrotum. There seemed to be ____ and then ____ fluctuant area at the perineum. An incision with a number ____ was made. Pus drained. Wound culture sent. At this point, ____ we opened up the ____ up towards the most ____ aspect of the scrotum ____ inferior aspect of the ____ incised and opened, ____ some of the deeper fascial plane, but did not seem to be ____ artery that was obvious ____. At this point, we irrigated that area. We seemed to have adequate extension. Of note, incision along the ____. At this point, ____ area was irrigated and ____. The patient was awakened and transferred to PACU in good and stable condition. ____ for monitoring for any progression ____. JOB# [id number] ATS/NTS
== END 2019-02-21 17:30 | disposition left against medical advice (07) | DRG 853 ==
LOC: ED 20:13 → 3B-SURG 02-17 10:44
PROVIDERS: ADMIT Internal Medicine; ATTEND Internal Medicine
PROC: 0TJB8ZZ Inspection of Bladder, Via Natural or Artificial Opening Endoscopic (ICD-10-PCS; principal; 2019-02-17)
PROC: 0VB50ZZ Excision of Scrotum, Open Approach (ICD-10-PCS; 2019-02-17)
PROC: 5A09357 Assistance with Respiratory Ventilation, Less than 24 Consecutive Hours, Continuous Positive Airway Pressure (ICD-10-PCS; 2019-02-18)
PROC: 5A09357 Assistance with Respiratory Ventilation, Less than 24 Consecutive Hours, Continuous Positive Airway Pressure (ICD-10-PCS; 2019-02-19)
DX: A41.9 Sepsis, unspecified organism (principal); J96.01 Acute respiratory failure with hypoxia; L03.315 Cellulitis of perineum; Z68.44 Body mass index [BMI] 60.0-69.9, adult; I11.0 Hypertensive heart disease with heart failure; I50.9 Heart failure, unspecified; K21.9 Gastro-esophageal reflux disease without esophagitis; N49.2 Inflammatory disorders of scrotum; E11.9 Type 2 diabetes mellitus without complications; Z53.21 Procedure and treatment not carried out due to patient leaving prior to being seen by health care provider; J44.9 Chronic obstructive pulmonary disease, unspecified; N49.3 Fournier gangrene; E66.01 Morbid (severe) obesity due to excess calories; Z83.3 Family history of diabetes mellitus; Z82.5 Family history of asthma and other chronic lower respiratory diseases; Z88.1 Allergy status to other antibiotic agents; Z88.0 Allergy status to penicillin; Z79.82 Long term (current) use of aspirin; Z79.899 Other long term (current) drug therapy; Z79.51 Long term (current) use of inhaled steroids; Z79.4 Long term (current) use of insulin; Z99.81 Dependence on supplemental oxygen; Z87.891 Personal history of nicotine dependence
CPT/HCPCS: 36415; 71046; 72193; 80048; 80202; 82140; 82962; 83036; 83735; 84100; 84484; 85007; 85025; 85027; 85610; 85730; 87040; 87075; 87116; 93005; 93010; 93975; 94640; 94660; 94760; 96361; 96365; 96375; G0378; A6260; A9270-GY; J0360; J0696; J1170; J1580; J2270; J2405; J2543; J2704; J3010; J3370; J7030; J7040; Q9967

== ENCOUNTER 2020-05-19 12:12 | Emergency (ER) | payer MEDICARE ==
--- NOTE | 2020-05-19 12:16 | Event Note ---
ED Screening Note Date of service: 05/19/20 Time: 12:15 ED Screening Note: 45-year-old morbid obese -[place] male presents to the emergency room for 2 boils in between his thighs that started draining 2 days ago. Patient has a significant history of diabetes hypertension morbid obesity. Temperature in triage is 100.2. This initial assessment/diagnostic orders/clinical plan/treatment(s) is/are subject to change based on patients health status, clinical progression and re-assessment by fellow clinical providers in the ED. Further treatment and workup at subsequent clinical providers discretion. Patient/guardian urged not to elope from the ED as their condition may be serious if not clinically assessed and managed. Initial orders include:
[2020-05-19] MEDS ORDERED: ACETAMINOPHEN 500 MG TAB PO ONE (12:18)
[2020-05-19] MEDS ORDERED: ACETAMINOPHEN 325 MG TAB ONE (12:18)
[2020-05-19 14:38] LABS: Hematocrit 48.5 % (35.5-45.6); Hemoglobin 16.2 gm/dl (11.8-15.2); Mean Corpuscular HGB Conc 33 % (32-34); Mean Corpuscular Volume 89 fl (84-94); Platelet Count 234 K/mm3 (140-440); Red Blood Count 5.45 M/mm3 (3.65-5.03); Red Cell Distribution Width 13.4 % (13.2-15.2)
[2020-05-19 14:45] LABS: Basophils % (Auto) 0.2 % (0.0-1.8); Eosinophils % (Auto) 0.4 % (0.0-4.3); Lymphocytes # (Auto) 1.4 K/mm3 (1.2-5.4); Lymphocytes % (Auto) 7.7 % (13.4-35.0); Monocytes # (Auto) 1.3 K/mm3 (0.0-0.8); Monocytes % (Auto) 6.8 % (0.0-7.3)
[2020-05-19 14:46] LABS: Eosinophils # (Auto) 0.1 K/mm3 (0.0-0.4)
[2020-05-19 14:55] LABS: Alanine Aminotransferase 20 units/L (7-56); Albumin 3.1 g/dL (3.9-5); BUN/Creatinine Ratio 12; Blood Urea Nitrogen 12 mg/dL (9-20); Calcium 9.3 mg/dL (8.4-10.2); Hemolysis Index 53
[2020-05-19] MEDS ORDERED: VANCOMYCIN/NS 1 GM/250 ML 1 GM/250 ML BAG IV ONE (15:27)
[2020-05-19] MEDS ORDERED: metroNIDAZOLE 500 MG TAB PO ONE (15:28)
[2020-05-19] MEDS ORDERED: oxyCODONE /ACETAMINOPHEN 5-325MG TAB PO ONE (15:29)
[2020-05-19] MEDS ORDERED: VANCOMYCIN 2,000 MG in SODIUM CHLORIDE 0.9% 500 ML 500 ML IV ONE (16:00)
--- NOTE | 2020-05-19 16:15 | Emergency Department Report ---
- General Chief complaint: Skin/Abscess/Foreign Body Stated complaint: BOILS FOBILATERAL GROINS Time Seen by Provider: 05/19/20 14:20 Source: patient, EMS Mode of arrival: Wheelchair Limitations: No Limitations - History of Present Illness Initial comments: This is a 45-year-old -[place] male morbidly obese with a past medical history of diabetes COPD on home oxygen 2 L via nasal cannula CHF and ARMANDO. He is complaining of boils to his scrotum x3 days. Patient states he has had boils which are draining one on his scrotum one near his anus. He denies any fever. Does complain of sweating but no fever no chills no nausea no vomiting. MD complaint: abscess/boil (Scrotum and perineum) -: days(s) (3) Severity: moderate Consistency: constant Improves with: none Worsens with: none Associated symptoms: other (Pain to the scrotum some swelling) Treatments Prior to Arrival: none - Related Data Home Medications Medication Instructions Recorded Confirmed Last Taken Aspirin [Aspirin EC] 81 mg PO DAILY 04/23/17 01/14/20 04/23/17 Furosemide [Lasix TAB] 40 mg PO QDAY 04/23/17 01/14/20 04/23/17 Carvedilol [Coreg] 25 mg PO DAILY 02/17/19 01/14/20 Unknown Famotidine [Pepcid] 20 mg PO DAILY 02/17/19 01/14/20 Unknown Insulin Aspart (Nf) [NovoLOG 100 See Protocol SUB-Q ACHS 02/19/19 01/14/20 Unknown UNITS/ML VIAL] Simvastatin 40 mg PO QHS 02/19/19 01/14/20 Unknown glipiZIDE [Glucotrol] 5 mg PO QDAY 02/19/19 01/14/20 Unknown Previous Rx's Medication Instructions Recorded Last Taken Type lisinopriL [Zestril TAB] 40 mg PO QDAY #30 tablet 05/05/17 Unknown Rx Albuterol Sulfate [Proair 90 mcg IH Q4HR PRN #2 aer.pow.ba 01/19/18 Unknown Rx Respiclick] Cephalexin [Keflex] 750 mg PO QID 7 Days capsule 02/21/19 Unknown Rx oxyCODONE /ACETAMINOPHEN [Percocet 1 tab PO Q6HR PRN #12 tablet 02/21/19 Unknown Rx 5/325] Clindamycin [Clindamycin CAP] 300 mg PO Q8H #30 cap 01/15/20 Unknown Rx oxyCODONE /ACETAMINOPHEN [Percocet 1 tab PO Q6HR PRN #24 tablet 01/15/20 Unknown Rx 5/325] Allergies Allergy/AdvReac Type Severity Reaction Status Date / Time Penicillins Allergy Unknown Verified 01/13/20 15:52 Abscess Boil HPI - HPI Chief Complaint: Skin/Abscess/Foreign Body Stated Complaint: BOILS FOBILATERAL GROINS Time Seen by Provider: 05/19/20 14:20 Duration: 3 Days Location: Other (Scrotum) History: Yes Pain, Yes Purulent Drainage, No Fever, No Numbness, No Foreign Body, No Previous History, No Insect Bite Home Medications: Home Medications Medication Instructions Recorded Confirmed Last Taken Aspirin [Aspirin EC] 81 mg PO DAILY 04/23/17 01/14/20 04/23/17 Furosemide [Lasix TAB] 40 mg PO QDAY 04/23/17 01/14/20 04/23/17 Carvedilol [Coreg] 25 mg PO DAILY 02/17/19 01/14/20 Unknown Famotidine [Pepcid] 20 mg PO DAILY 02/17/19 01/14/20 Unknown Insulin Aspart (Nf) [NovoLOG 100 See Protocol SUB-Q ACHS 02/19/19 01/14/20 Unknown UNITS/ML VIAL] Simvastatin 40 mg PO QHS 02/19/19 01/14/20 Unknown glipiZIDE [Glucotrol] 5 mg PO QDAY 02/19/19 01/14/20 Unknown Previous Rx's Medication Instructions Recorded Last Taken Type lisinopriL [Zestril TAB] 40 mg PO QDAY #30 tablet 05/05/17 Unknown Rx Albuterol Sulfate [Proair 90 mcg IH Q4HR PRN #2 aer.pow.ba 01/19/18 Unknown Rx Respiclick] Cephalexin [Keflex] 750 mg PO QID 7 Days capsule 02/21/19 Unknown Rx oxyCODONE /ACETAMINOPHEN [Percocet 1 tab PO Q6HR PRN #12 tablet 02/21/19 Unknown Rx 5/325] Clindamycin [Clindamycin CAP] 300 mg PO Q8H #30 cap 01/15/20 Unknown Rx oxyCODONE /ACETAMINOPHEN [Percocet 1 tab PO Q6HR PRN #24 tablet 01/15/20 Unknown Rx 5/325] Allergies/Adverse Reactions: Allergies Allergy/AdvReac Type Severity Reaction Status Date / Time Penicillins Allergy Unknown Verified 01/13/20 15:52 ED Review of Systems ROS: Stated complaint: BOILS FOBILATERAL GROINS Other details as noted in HPI Comment: All other systems reviewed and negative Constitutional: denies: chills, fever Eyes: denies: eye pain Respiratory: no symptoms reported Cardiovascular: denies: chest pain, palpitations, dyspnea on exertion Endocrine: no symptoms reported Gastrointestinal: denies: abdominal pain, nausea, vomiting Genitourinary: denies: dysuria, frequency, hematuria, testicular pain, testicular mass Skin: other (Boils to the scrotum and perineum open flat serosanguineous drainage ) Neurological: denies: headache, weakness Psychiatric: denies: anxiety, depression ED Past Medical Hx - Past Medical History Previous Medical History?: Yes Hx Hypertension: Yes Hx Heart Attack/AMI: (hx CHF; last TTE "fine" in 2018 per patient. None in [facility] records.) Hx Congestive Heart Failure: Yes Hx Diabetes: Yes Hx Deep Vein Thrombosis: No Hx Liver Disease: (fatty liver; no hx liver dysfunction) Hx Renal Disease: No Hx Psychiatric Treatment: Yes Hx Asthma: No Hx COPD: Yes Hx HIV: No Additional medical history: ADD, MRSA. anxiety. lung obstruction (right). Morbid obesity - Surgical History Past Surgical History?: Yes Hx Pacemaker: No Hx Internal Defibrillator: No Additional Surgical History: Boils I&D - Social History Smoking Status: Former Smoker - Medications Home Medications: Home Medications Medication Instructions Recorded Confirmed Last Taken Type Aspirin [Aspirin EC] 81 mg PO DAILY 04/23/17 01/14/20 04/23/17 History Furosemide [Lasix TAB] 40 mg PO QDAY 04/23/17 01/14/20 04/23/17 History lisinopriL [Zestril TAB] 40 mg PO QDAY #30 tablet 05/05/17 01/14/20 Unknown Rx Albuterol Sulfate [Proair 90 mcg IH Q4HR PRN #2 aer.pow.ba 01/19/18 01/14/20 Unknown Rx Respiclick] Carvedilol [Coreg] 25 mg PO DAILY 02/17/19 01/14/20 Unknown History Famotidine [Pepcid] 20 mg PO DAILY 02/17/19 01/14/20 Unknown History Insulin Aspart (Nf) [NovoLOG 100 See Protocol SUB-Q ACHS 02/19/19 01/14/20 Unknown History UNITS/ML VIAL] Simvastatin 40 mg PO QHS 02/19/19 01/14/20 Unknown History glipiZIDE [Glucotrol] 5 mg PO QDAY 02/19/19 01/14/20 Unknown History Cephalexin [Keflex] 750 mg PO QID 7 Days capsule 02/21/19 01/14/20 Unknown Rx oxyCODONE /ACETAMINOPHEN [Percocet 1 tab PO Q6HR PRN #12 tablet 02/21/19 01/14/20 Unknown Rx 5/325] Clindamycin [Clindamycin CAP] 300 mg PO Q8H #30 cap 01/15/20 Unknown Rx oxyCODONE /ACETAMINOPHEN [Percocet 1 tab PO Q6HR PRN #24 tablet 01/15/20 Unknown Rx 5/325] ED Physical Exam - General Limitations: No Limitations General appearance: alert, in no apparent distress - Head Head exam: Present: atraumatic - Eye Eye exam: Present: normal appearance - ENT ENT exam: Present: normal exam - Neck Neck exam: Present: normal inspection - Respiratory Respiratory exam: Present: decreased breath sounds. Absent: respiratory distress, wheezes, rales, rhonchi (At the bases) - Cardiovascular Cardiovascular Exam: Present: regular rate, normal heart sounds - GI/Abdominal GI/Abdominal exam: Present: soft. Absent: distended, tenderness - exam: Present: scrotal swelling, other (Is open well center posterior portion of the scrotum draining serosanguineous drainage. Perineal boil) - Extremities Exam Extremities exam: Present: normal inspection - Back Exam Back exam: Present: normal inspection - Neurological Exam Neurological exam: Present: alert, oriented X3 - Psychiatric Psychiatric exam: Present: normal affect - Skin Skin exam: Present: warm, other (Boils noted to the perineum and scrotum) ED Course Vital Signs 05/19/20 05/19/20 05/19/20 12:15 16:03 19:14 Temperature 100.2 F H 99.4 F 99.1 F Pulse Rate 100 H 77 Respiratory 22 16 Rate Blood Pressure 152/94 137/75 O2 Sat by Pulse 94 97 Oximetry - Reevaluation(s) Reevaluation #1: 05/19/20 15:29 I discussed findings with Dr. Johnston will add CT of his pelvis to the work- up. Start IV antibiotics of Vanco and Flagyl. Discussed plan of care with patient he is in no acute distress Reevaluation #2: 05/19/20 18:31 Patient in no acute distress all findings discussed with Dr. Johnston. No urology covering at our facility. [facility]: 05/19/20 19:44 Patient accepted for transfer by Dr. Alonso urologist [facility]. I discussed with patient he is aware that he has been transfer and is agreeable 05/19/20 19:44 Patient's doing well temperature is 99..1 blood pressure 135/75 heart rate 77 O2 sat 97% 05/19/20 19:45 ED Medical Decision Making - Lab Data Result diagrams: 05/19/20 13:22 05/19/20 13:22 - Radiology Data Radiology results: report reviewed CT OF Pelvis FINDINGS: Lung bases demonstrate no significant abnormality. Mild coronary artery atherosclerotic calcification is present with a small amount of pericardial fluid. Visualized liver demonstrates steatosis. Remaining incidentally visualized abdominal structures demonstrate no significant abnormality. GENITOURINARY: No significant abnormality. GASTROINTESTINAL/MESENTERY: No significant abnormality. RETROPERITONEUM: No significant adenopathy. REPRODUCTIVE ORGANS: No significant abnormality. VASCULAR: Moderate atherosclerotic calcification without acute abnormality. BODY WALL: Partially visualized perineal structures demonstrate a moderate amount of induration with mild induration and moderate amount of subcutaneous emphysema at the right anterior perineum no focal abscess. No evidence of extension osseous structures. SKELETAL SYSTEM: No significant abnormality. IMPRESSION: 1. Moderate amount of perineal inflammation, worse towards the right with a moderate amount of subcutaneous gas in the right anterior aspect concerning for Ana Laura's gangrene. No focal abscess. No evidence of osseous or intraperitoneal extension. - Medical Decision Making This is a 45-year-old -[place] male morbidly obese with a past medical history of diabetes COPD on home oxygen 2 L CHF and sleep apnea. He presents to the ER with complaining with complaints of boils to his scrotum x3 days. Blood work shows a white count of 18.3 his lactic acid was 1.5 sodium 134 chloride [address] of the pelvis with contrast was done and it showed moderate amount of peritoneal inflammation and moderate amount of subcutaneous gas concerning for foreign years gangrene. No urology covering at this hospital. Calls placed to initiate transfer to [facility] Critical care attestation.: If time is entered above; I have spent that time in minutes in the direct care of this critically ill patient, excluding procedure time. 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 Alonso Referrals: PRIMARY CARE, [Primary Care Provider] - 3-5 Days Time of Disposition: 19:47
--- NOTE | 2020-05-19 18:18 | Cat Scan Report ---
CT ABDOMEN/PELVIS WITH CONTRAST INDICATION / CLINICAL INFORMATION: MAIN. Provided clinical history of rule out abscess. TECHNIQUE: Axial CT images were obtained through the abdomen and pelvis after 100 cc Omnipaque [address] scans at this location are performed using CT dose reduction for ALARA by means of automated exposure control. COMPARISON: CT pelvis 02/17/2019 FINDINGS: Lung bases demonstrate no significant abnormality. Mild coronary artery atherosclerotic calcification is present with a small amount of pericardial fluid. Visualized liver demonstrates steatosis. Remain ing incidentally visualized abdominal structures demonstrate no significant abnormality. GENITOURINARY: No significant abnormality. GASTROINTESTINAL/MESENTERY: No significant abnormality. RETROPERITONEUM: No significant adenopathy. REPRODUCTIVE ORGANS: No significant abnormality. VASCULAR: Moderate atherosclerotic calcification without acute abnormality. BODY WALL: Partially visualized perineal structures demonstrate a moderate amount of induration with mild induration and moderate amount of subcutaneous emphysema at the right anterior perineum no focal abscess. No evidence of extension osseous structures. SKELETAL SYSTEM: No significant abnormality. IMPRESSION: 1. Moderate amount of perineal inflammation, worse towards the right with a moderate amount of subcut aneous gas in the right anterior aspect concerning for Ana Laura's gangrene. No focal abscess. No evid ence of osseous or intraperitoneal extension. Signer Name: Star Lopez MD Signed: 05/19/2020 6:13 PM Workstation Name: [id number]
[2020-05-19 19:19] VITALS: BP 137/75
[2020-05-19] MEDS ORDERED: HYDROmorphone 1 MG/1 ML INJ ONE (21:39)
[2020-05-19] MEDS ORDERED: HYDROmorphone 1 MG/1 ML INJ IV ONE (21:41)
[2020-05-19 22:12] LABS: Bilirubin,Urine SM (Negative); Blood,Urine NEG (Negative); Color,Urine Amber (Yellow); Mucus,Urine 3+ /HPF
[2020-05-19 22:28] LABS: Ictotest,Urine Negative (Negative)
== END 2020-05-19 22:37 | disposition other institution (70) ==
LOC: ED 12:12
DX: N49.3 Fournier gangrene (principal); R10.2 Pelvic and perineal pain; I11.0 Hypertensive heart disease with heart failure; I50.9 Heart failure, unspecified; E11.9 Type 2 diabetes mellitus without complications; J44.9 Chronic obstructive pulmonary disease, unspecified; Z87.891 Personal history of nicotine dependence; Z79.4 Long term (current) use of insulin; Z79.2 Long term (current) use of antibiotics; Z79.899 Other long term (current) drug therapy; Z88.0 Allergy status to penicillin
CPT/HCPCS: 36415; 72193; 80053; 81001; 82140; 85025; 87086; 96365; 96366; 96375; 99285; J1170; J3370; J7040; Q9967

== ENCOUNTER 2020-07-11 13:11 | Outpatient (CLI) | payer MEDICARE ==
[2020-07-11] MEDS ORDERED: LIDOCAINE (4%) 40 MG/ML TOPICAL SOLN 50 ML BOTTLE TP ONE (13:20)
== END 2020-07-11 13:12 | disposition home or self-care (01) ==
LOC: WOUND 13:11
PROVIDERS: ATTEND Surgery
DX: T81.89XA Other complications of procedures, not elsewhere classified, initial encounter (principal); I11.0 Hypertensive heart disease with heart failure; I50.9 Heart failure, unspecified; J44.9 Chronic obstructive pulmonary disease, unspecified; E66.9 Obesity, unspecified; F41.9 Anxiety disorder, unspecified; G47.33 Obstructive sleep apnea (adult) (pediatric); Z86.718 Personal history of other venous thrombosis and embolism; Z87.891 Personal history of nicotine dependence; Y83.8 Other surgical procedures as the cause of abnormal reaction of the patient, or of later complication, without mention of misadventure at the time of the procedure; Y92.238 Other place in hospital as the place of occurrence of the external cause
CPT/HCPCS: 11042; G0463; 99204; 99214